=== PATIENT | male | born 1970 | race Caucasian/White ===

== ENCOUNTER 2016-06-10 12:40 | Inpatient (IN) | payer SELFPAY ==
--- NOTE | 2016-06-10 12:52 | ER Document Report ---
ED Medical Screen (RME) - General Stated Complaint: POSSIBLE KIDNEY PROBLEM Notes: 45 yo male c/o hx/o polycystic disease, stage 6 CKD c/o fluid retention. hands and feet swelling. increased urination. unable to lie flat. + shortness of breath. no fever. Given Lasix at [facility] yesterday, treated with Lasix. Follow up today, instructed to come to ER for further evaluation TRAVEL OUTSIDE OF THE [place] IN LAST 30 DAYS: No - Related Data Allergies/Adverse Reactions: Penicillins Adverse Reaction (Verified 05/28/16 14:26) Past Medical History - Past Medical History Cardiac Medical History: Reports: Hx Hypertension Neurological Medical History: Denies: Hx Seizures Endocrine Medical History: Reports: Hx Diabetes Mellitus Type 2 - "diet- controlled" Past Surgical History: Reports: Hx Orthopedic Surgery - fx L forearm, Hx Tonsillectomy - adnoids. Denies: Hx Pacemaker - Immunizations Immunizations up to date: Yes Hx Diphtheria, Pertussis, Tetanus Vaccination: Yes
[2016-06-10 13:21] LABS: ABSOLUTE BASOPHILS # (AUTO) 0.1 10^3/uL (0.0-0.2); ABSOLUTE EOSINOPHILS # (AUTO) 0.2 10^3/uL (0.0-0.6); ABSOLUTE LYMPHOCYTES (AUTO) 1.5 10^3/uL (0.5-4.7); ABSOLUTE MONOCYTES (AUTO) 0.5 10^3/uL (0.1-1.4); BASOPHILS % (AUTO) 1.5 % (0-2); EOSINOPHILS % (AUTO) 2.8 % (0-6); HEMATOCRIT 30.6 % (37.9-51.0); HEMOGLOBIN 10.1 g/dL (13.5-17.0); HGB HCT DIFFERENCE -0.3; LYMPHOCYTES % (AUTO) 17.6 % (13-45); MEAN CORPUSCULAR HEMOGLOBIN 29.3 pg (27.0-33.4); MEAN CORPUSCULAR HGB CONC 33.1 g/dL (32.0-36.0); MEAN CORPUSCULAR VOLUME 88 fl (80-97); MONOCYTES % (AUTO) 6.3 % (3-13); RED BLOOD COUNT 3.46 10^6/uL (4.35-5.55); RED CELL DISTRIBUTION WIDTH 14.7 % (11.5-14.0); SEGMENTED NEUTROPHILS % (AUTO) 71.8 % (42-78); WHITE BLOOD COUNT 8.4 10^3/uL (4.0-10.5)
[2016-06-10 13:22] LABS: APPEARANCE,URINE CLEAR; BILIRUBIN,URINE NEGATIVE (NEGATIVE); GLUCOSE, URINE 50 mg/dL (NEGATIVE); KETONES,URINE NEGATIVE (NEGATIVE); LEUKOCYTE ESTERASE,URINE MODERATE (NEGATIVE); NITRITE,URINE NEGATIVE (NEGATIVE); PROTEIN,URINE >=500 mg/dL (NEGATIVE); UROBILINOGEN,URINE NEGATIVE mg/dL (<2.0)
[2016-06-10 13:43] LABS: ALANINE AMINOTRANSFERASE 40 U/L (21-72); ALBUMIN 3.7 g/dL (3.5-5.0); ALKALINE PHOSPHATASE 125 U/L (38-126); ANION GAP 18 (5-19); ASPARTATE AMINO TRANSFERASE 26 U/L (17-59); BILIRUBIN,TOTAL 0.3 mg/dL (0.2-1.3); BLOOD UREA NITROGEN 91 mg/dL (7-20); CARBON DIOXIDE 19 mmol/L (22-30); CHLORIDE 109 mmol/L (98-107); CREATININE RESULT 10.22 mg/dL (0.52-1.25); GLUCOSE 82 mg/dL (75-110); POTASSIUM 4.8 mmol/L (3.6-5.0); SODIUM 145.9 mmol/L (137-145); TOTAL PROTEIN 6.5 g/dL (6.3-8.2)
[2016-06-10 14:02] LABS: CALCIUM 5.9 mg/dL (8.4-10.2)
[2016-06-10] MEDS ORDERED: FUROSEMIDE INJ/PF 40 MG/4 ML SDV IV ONE (15:14)
--- NOTE | 2016-06-10 15:17 | ER Document Report ---
ED General - General Chief Complaint: Edema Stated Complaint: POSSIBLE KIDNEY PROBLEM Notes: Patient is a 45-year-old morbidly obese male, history of hypertension, hyperlipidemia, chronic kidney disease, polycystic kidney disease who presents from his chronic care doctor's office with concerns of increasing peripheral edema and orthopnea. The patient has a known history of chronic kidney disease but his primary care doctor's documents as well as the patient's history note that it has been getting progressively worse over the last 6 months. Patient states that he has not been able see the appropriate specialist secondary to lack of insurance. He notes that his both the orthopnea as well as the peripheral edema has gotten dramatically worse in the last 4 days despite taking increasing doses of Lasix. Nothing has improved worsened his symptoms. Denies any history of similar symptoms in the past. He has not had any chest pain, weakness, numbness, or altered mental status. TRAVEL OUTSIDE OF THE [place] IN LAST 30 DAYS: No - Related Data Allergies/Adverse Reactions: Penicillins Adverse Reaction (Verified 06/10/16 12:51) Home Medications: Current Home Medications Nifedipine [Nifedipine ER] 30 mg PO DAILY 06/10/16 [History] Past Medical History - General Information source: Patient - Social History Smoking Status: Never Smoker Chew tobacco use (# tins/day): No Frequency of alcohol use: None Drug Abuse: None Lives with: Alone Family History: Reviewed & Not Pertinent Patient has suicidal ideation: No Patient has homicidal ideation: No - Past Medical History Cardiac Medical History: Reports: Hx Hypertension Neurological Medical History: Denies: Hx Seizures Endocrine Medical History: Reports: Hx Diabetes Mellitus Type 2 - "diet- controlled" Past Surgical History: Reports: Hx Orthopedic Surgery - fx L forearm, Hx Tonsillectomy - adnoids. Denies: Hx Pacemaker - Immunizations Immunizations up to date: Yes Hx Diphtheria, Pertussis, Tetanus Vaccination: Yes Hx Pneumococcal Vaccination: 04/07/12 Review of Systems - Review of Systems Notes: Constitutional: Negative for fever. HENT: Negative for sore throat. Eyes: Negative for visual changes. Cardiovascular: Negative for chest pain. Respiratory: Positive for shortness of breath. Gastrointestinal: Negative for abdominal pain, vomiting or diarrhea. Genitourinary: Negative for dysuria. Musculoskeletal: Negative for back pain. Skin: Negative for rash. Neurological: Negative for headaches, weakness or numbness. 10 point ROS negative except as marked above and in HPI. Physical Exam - Vital signs Vitals: Temp Pulse Resp BP Pulse Ox 97.9 F 73 20 211/106 H 98 06/10/16 12:51 06/10/16 12:51 06/10/16 12:51 06/10/16 12:51 06/10/16 12:51 Interpretation: Hypertensive Notes: PHYSICAL EXAMINATION: GENERAL: Morbidly obese. In no acute distress. HEAD: Atraumatic, normocephalic. EYES: Pupils equal round and reactive to light, extraocular movements intact, sclera anicteric, conjunctiva are normal. ENT: nares patent, oropharynx clear without exudates. Moist mucous membranes. NECK: Normal range of motion, supple without lymphadenopathy LUNGS: Breath sounds clear to auscultation bilaterally and equal. No wheezes rales or rhonchi. HEART: Regular rate and rhythm without murmurs ABDOMEN: Obese abdomen. Soft, nontender, normoactive bowel sounds. No guarding , no rebound. No masses appreciated. EXTREMITIES: Normal range of motion, 4+ pitting edema in the bilateral lower extremities that is equal and symmetric. No cyanosis. NEUROLOGICAL: No focal neurological deficits. Moves all extremities spontaneously and on command. PSYCH: Normal mood, normal affect. SKIN: Warm, Dry, normal turgor, no rashes or lesions noted. Course - Re-evaluation Re-evalutation: 06/10/16 23:21 Patient laboratories and history are most consistent with progressively worsening renal function the setting of morbid obesity and uncontrolled hypertension. Patient appears to have some associated congestive heart failure with associated orthopnea although he does not have any evidence of overt pulmonary edema chest x-ray or exam. Patient's renal function has deteriorated to the point where I believe the only option at this point is to proceed with initiation of dialysis. I have discussed this case with Dr. Cross the tree [employer] production worker who agrees. The patient will be admitted to the hospitalist service inserted on IV Lasix. He will be seen by nephrology in the morning for initiation of dialysis. - Vital Signs Vital signs: Temp Pulse Resp BP Pulse Ox 98.3 F 95 20 209/91 H 100 06/10/16 20:00 06/10/16 20:00 06/10/16 20:00 06/10/16 20:00 06/10/16 20:00 - Laboratory Result Diagrams: 06/10/16 12:55 06/10/16 12:55 Laboratory results interpreted by me: 06/10/16 06/10/16 06/10/16 12:55 12:55 12:55 RBC 3.46 L Hgb 10.1 L Hct 30.6 L RDW 14.7 H Sodium 145.9 H Chloride 109 H Carbon Dioxide 19 L BUN 91 H Creatinine 10.22 H Est GFR ( Amer) 7 L Est GFR (Non-Af Amer) 6 L Calcium 5.9 L* NT-Pro-B Natriuret Pep 2480 H Urine Protein Urine Glucose (UA) Urine Blood Ur Leukocyte Esterase 06/10/16 13:00 RBC Hgb Hct RDW Sodium Chloride Carbon Dioxide BUN Creatinine Est GFR ( Amer) Est GFR (Non-Af Amer) Calcium NT-Pro-B Natriuret Pep Urine Protein >=500 H Urine Glucose (UA) 50 H Urine Blood MODERATE H Ur Leukocyte Esterase MODERATE H - Diagnostic Test Radiology reviewed: Image reviewed, Reports reviewed Radiology results interpreted by me: 06/10/16 23:22 Chest x-ray: Cardiomegaly without overt pulmonary edema - EKG Interpretation by Me Additional EKG results interpreted by me: 06/10/16 23:23 Normal sinus rhythm. Rate 88. No ST elevations or depressions. QTC 470. Discharge - Discharge Clinical Impression: Accelerated secondary hypertension, PCK (polycystic kidney disease), CKD ( chronic kidney disease) stage V requiring chronic dialysis Condition: Fair Disposition: ADMITTED INPATIENT Admitting Provider: Hospitalist - [facility] Admitted: Telemetry
[2016-06-10] MEDS ORDERED: IPRATROPIUM/ALBUTEROL 0.5-2.5 MG/3 ML AMPUL NEB PRN (16:17)
[2016-06-10] MEDS ORDERED: ACETAMINOPHEN 325 MG TABLET PO PRN (16:30)
[2016-06-10] MEDS ORDERED: ONDANSETRON HCL INJ/PF 4 MG/2 ML SDV IV PRN (16:30)
[2016-06-10] MEDS ORDERED: HYDRALAZINE HCL INJ/PF 20 MG/1 ML SDV IV ONE (16:40)
--- NOTE | 2016-06-10 17:14 | PDOC H&P ---
History of Present Illness Admission Date/PCP: 06/10/16 15:39 Patient complains of: SWELLING AND DYSPNEA WHEN LYING FLAT, PROGRESSIVE FATIGUE History of Present Illness: KIERAN LOVE is a 45 year old male cared for by the local [facility] carrying a known diagnosis of polycystic kidney disease previously seen by Dr. Cross, store specialist in consultation who presents to the emergency department with progressive lower extremity swelling, difficulty breathing when lying flat , progressive weakness to the point that he cannot perform normal activities of daily living. He was recently seen in the emergency department on May 28 and diagnosed with lower extremity cellulitis and placed on a sulfa antibiotic for 5d and changed his antihypertensive regimen taking him off clonidine and Norvasc and placing him on nifedipine. He noticed no change in the lower extremity rash however his lower extremity edema continued to worsen. He denies chest pain or palpitations. He reports continuing to produce urine but has noticed a drop off in volume and frequency over the last week. He was seen at [facility] yesterday and given 2 injections of IM Lasix without effect. Evaluation in the emergency department shows pulmonary edema, markedly elevated systolic and diastolic blood pressures, and clinical findings suggestive of acute heart failure with worsening of his renal function from a serum creatinine of over 8 one year ago to now over 10 for persistent metabolic acidosis and numerous electrolyte abnormalities. We were asked to admit the patient for further evaluation and management. Past Medical History Cardiac Medical History: Reports: Hypertension Denies: Atrial Fibrillation, Congestive Heart Failure, Coronary Artery Disease Pulmonary Medical History: Reports: None Neurological Medical History: Denies: Seizures Endocrine Medical History: Reports: Diabetes Mellitus Type 2 - "diet-controlled " Renal/ Medical History: Reports: Chronic Kidney Disease - Polycystic kidney disease diagnosed within the last year both here and at [place], [place] Past Surgical History Past Surgical History: Reports: Orthopedic Surgery - fx L forearm, Tonsillectomy - adnoids Denies: Pacemaker Social History Information Source: Patient Smoking Status: Never Smoker Frequency of Alcohol Use: None Hx Recreational Drug Use: No Hx Prescription Drug Abuse: No - Advance Directive Resuscitation Status: Full Code Family History Family History: Other - Polycystic kidney disease in his aunt Parental Family History Reviewed: Yes Children Family History Reviewed: Yes Sibling(s) Family History Reviewed.: Yes Medication/Allergy Home Medications: Nifedipine [Nifedipine ER] 30 mg PO DAILY 06/10/16 Allergies/Adverse Reactions: Penicillins Adverse Reaction (Verified 06/10/16 12:51) Review of Systems Constitutional: PRESENT: weight gain. ABSENT: chills, fever(s), headache(s), weight loss Eyes: ABSENT: visual disturbances Ears: ABSENT: hearing changes Cardiovascular: PRESENT: edema, orthropnea. ABSENT: chest pain, dyspnea on exertion, palpitations Respiratory: PRESENT: cough - Dry hacking. ABSENT: hemoptysis Gastrointestinal: ABSENT: abdominal pain, constipation, diarrhea, hematemesis, hematochezia, nausea, vomiting Genitourinary: ABSENT: dysuria, hematuria Musculoskeletal: ABSENT: joint swelling Integumentary: ABSENT: rash, wounds Neurological: PRESENT: weakness. ABSENT: abnormal gait, abnormal speech, confusion, dizziness, syncope Psychiatric: ABSENT: anxiety, depression, homidical ideation, suicidal ideation Endocrine: ABSENT: cold intolerance, heat intolerance, polydipsia Hematologic/Lymphatic: ABSENT: easy bleeding, easy bruising Physical Exam Vital Signs: Temp Pulse Resp BP Pulse Ox 97.9 F 73 21 H 195/105 H 98 06/10/16 12:51 06/10/16 12:51 06/10/16 15:01 06/10/16 15:01 06/10/16 15:01 General appearance: PRESENT: no acute distress, cooperative Head exam: PRESENT: atraumatic, normocephalic Eye exam: PRESENT: EOMI, PERRLA. ABSENT: conjunctival injection, scleral icterus Mouth exam: PRESENT: moist Neck exam: PRESENT: full ROM. ABSENT: carotid bruit, JVD Respiratory exam: PRESENT: crackles - Bilateral bases, unlabored. ABSENT: rhonchi, wheezes Cardiovascular exam: PRESENT: RRR. ABSENT: systolic murmur - Distant heart sounds Pulses: PRESENT: normal carotid pulses, normal radial pulses Vascular exam: PRESENT: normal capillary refill. ABSENT: pallor GI/Abdominal exam: PRESENT: normal bowel sounds, soft - Massive pannus making it difficult to palpate renal margins. ABSENT: tenderness Rectal exam: PRESENT: deferred Extremities exam: PRESENT: +2 edema - With nonpitting edema as well Musculoskeletal exam: PRESENT: ambulatory, full ROM Neurological exam: PRESENT: alert, awake, oriented to person, oriented to place , oriented to time Psychiatric exam: PRESENT: appropriate affect, normal mood Skin exam: PRESENT: normal color, warm, other - 3 distinct excoriations on the right anterior south. No evidence of rash otherwise. No calluses Results Impressions: Chest X-Ray 06/10/16 12:55 IMPRESSION: Cardiomegaly. No acute infiltrates Assessment & Plan - Diagnosis (1) PCK (polycystic kidney disease) Is this a current diagnosis for this admission?: YesPlan: Appears to advanced to end-stage renal disease now requiring hemodialysis to maintain euvolemic. I spoke with Dr. Cross who will see the patient in consultation. I spoke with Dr. Alva, vascular surgeon who will see the patient in consultation. As a temporizing measure, Will place Rodriguez catheter for strict I's and O's and give IV Lasix. We'll check magnesium phosphorus and vitamin D screening for renal osteodystrophy. (2) Accelerated secondary hypertension Is this a current diagnosis for this admission?: YesPlan: Chest x-ray shows pulmonary vascular congestion and possible flash pulmonary edema from hypertension. Will treat with IV hydralazine 1 now and then scheduled oral hydralazine with scheduled clonidine and continue the patient's nifedipine. Goal is a 25% reduction in his systolic and diastolic blood pressures in the short-term. (3) Pulmonary edema Is this a current diagnosis for this admission?: YesPlan: As above. We'll check LV function with echocardiogram. (4) Anemia Qualifiers: Anemia type: unspecified type Qualified Code(s): D64.9 - Anemia, unspecified Is this a current diagnosis for this admission?: YesPlan: Probably anemia of chronic renal disease. We'll screen for iron deficiency. - Time Time Spent: 50 to 70 Minutes Medications reviewed and adjusted accordingly: Yes Anticipated discharge: Home Within: Other - Inpatient Certification Based on my medical assessment, after consideration of the patient's comorbidities, presenting symptoms, or acuity I expect that the services needed warrant INPATIENT care.: Yes I certify that my determination is in accordance with my understanding of Medicare's requirements for reasonable and necessary INPATIENT services [42 CFR 412.3e].: Yes Medical Necessity: Failure to Improve With Outpatient Therapy, Significant Comorbidiites Make Outpatient Treatment Too Risky, Risk of Complication if Not Cared For in Hospital
[2016-06-10] MEDS: CALCITRIOL 0.25 MCG CAPSULE PO SCH (18:43)
[2016-06-10 18:49] LABS: MAGNESIUM 1.5 mg/dL (1.6-2.3); PHOSPHORUS 7.9 mg/dL (2.5-4.5)
--- NOTE | 2016-06-10 19:43 | PDOC CONSULTATION ---
Consultation Consult Date: 06/10/16 Consult reason:: ESRD and heart failure for dialysis. History of Present Illness Admission Date/PCP: 06/10/16 16:17 History of Present Illness: Assessment Ector Lawrence is a 45-year-old gentleman with a past medical history of hypertension for at least 10 years with a diagnosis of adult polycystic kidney disease made approximately 3-4 years ago comes in with history of progressive shortness of breath and anasarca. He has had no primary care other than [facility] where he has been getting his antihypertensives. He has a [id number] by the bedside who has noticed progressive swelling especially of his lower extremities over the last few weeks. His also noticed difficulty with breathing which has gotten to the point of orthopnea and has been sleeping sitting up. He is on a low-sodium diet. No history of any chest pains palpitations. No stricture and severe headaches he shows focal deficits. He does not take any NSAIDs. No hematuria. He has mild flank pains but nothing severe. He states he has been told that he has had progressive ckd other [facility]. Past Medical History Cardiac Medical History: Reports: Hypertension-primary Denies: Atrial Fibrillation, Coronary Artery Disease Pulmonary Medical History: Reports: None Neurological Medical History: Denies: Seizures Endocrine Medical History: Reports: Diabetes Mellitus Type 2 - "diet-controlled " Renal/ Medical History: Reports: Chronic Kidney Disease Stage IV, Other - Polycystic kidney disease. Past Surgical History Past Surgical History: Reports: Orthopedic Surgery - fx L forearm, Tonsillectomy - adnoids Denies: Pacemaker Social History Smoking Status: Never Smoker Frequency of Alcohol Use: None Hx Recreational Drug Use: No Hx Prescription Drug Abuse: No - Advance Directive Resuscitation Status: Full Code Family History Parental Family History Reviewed: Yes - paternal aunt with polycystic kidney disease. No history of premature hear Children Family History Reviewed: No Sibling(s) Family History Reviewed.: No - He has one brother who does not have polycystic kidney disease. Medication/Allergy Home Medications: Nifedipine [Nifedipine ER] 30 mg PO DAILY 06/10/16 Allergies/Adverse Reactions: Penicillins Adverse Reaction (Verified 06/10/16 12:51) Review of Systems Constitutional: PRESENT: weight gain. ABSENT: anorexia, chills, fever(s), headache(s), night sweats, weakness, weight loss Eyes: ABSENT: visual disturbances Ears: ABSENT: hearing changes Nose, Mouth, and Throat: ABSENT: mouth pain, sore throat, vertigo Cardiovascular: PRESENT: dyspnea on exertion, edema, orthropnea. ABSENT: chest pain, palpitations Respiratory: PRESENT: dyspnea. ABSENT: hemoptysis Gastrointestinal: ABSENT: abdominal pain, bloating, coffee ground emesis, diarrhea, dysphagia, heartburn, hematemesis, hematochezia, melena, nausea, vomiting Genitourinary: ABSENT: difficulty urinating, dysuria, hematuria, nocturia Musculoskeletal: ABSENT: muscle weakness Integumentary: ABSENT: erythema, lesions, pruritus, rash Neurological: ABSENT: confusion, convulsions, focal weakness Endocrine: ABSENT: heat intolerance, polydipsia Hematologic/Lymphatic: ABSENT: easy bleeding Physical Exam Vital Signs: Temp Pulse Resp BP Pulse Ox 97.6 F 90 18 187/88 H 99 06/10/16 17:39 06/10/16 17:57 06/10/16 17:57 06/10/16 17:39 06/10/16 17:57 General appearance: PRESENT: no acute distress, obese Eye exam: PRESENT: conjunctiva pink, EOMI, PERRLA. ABSENT: nystagmus, scleral icterus Ear exam: PRESENT: normal external ear exam Mouth exam: PRESENT: moist, neck supple Neck exam: ABSENT: lymphadenopathy, meningismus, tenderness, thyromegaly, tracheal deviation Respiratory exam: PRESENT: clear to auscultation german, crackles, rales, symmetrical. ABSENT: rhonchi Cardiovascular exam: PRESENT: +S1, +S2 GI/Abdominal exam: PRESENT: soft. ABSENT: organomegaly, tenderness Extremities exam: PRESENT: +1 edema Neurological exam: PRESENT: alert, awake, oriented to person, oriented to place , oriented to time Psychiatric exam: PRESENT: normal mood Results Laboratory Results: 06/10/16 18:10 Phosphorus 7.9 H Magnesium 1.5 L 06/10/16 18:10 Troponin I 0.016 Impressions: Chest X-Ray 06/10/16 12:55 IMPRESSION: Cardiomegaly. No acute infiltrates Assessment & Plan - Diagnosis (1) CKD (chronic kidney disease) stage V requiring chronic dialysis Plan: This patient has ckd stage V from polycystic kidney disease. He has got congestive heart failure . However he is in no extremis. Electrolytes are stable. Patient has been begun on IV Lasix and antihypertensives as per hospitalist. I have discussed the patient's situation at length with both the hospitalist and with Dr. Alva. We will plan to insert PermCath and start hemodialysis and later convert him to PKD in the next few weeks' time. Have discussed the procedure of hemodialysis at great lengths including the pros and cons. The patient understands the risks of the procedure including infections bleeding, hypotension and rare cases cardiac arrest. He is willing to proceed. We will get appropriate labs including hepatitis panel and place a PPD to be read in 48 hours. (2) Anemia Qualifiers: Anemia type: unspecified type Qualified Code(s): D64.9 - Anemia, unspecified Is this a current diagnosis for this admission?: YesPlan: Initiated workup. (3) PCK (polycystic kidney disease) Is this a current diagnosis for this admission?: YesPlan: Diagnosis made approximately 34 years ago. I did review his CT scan done on 10/2014 which had shown polycystic kidney disease and potential mass in the left lower pole of the kidneys. No follow-up studies or ultrasound has been done here. I have ordered a renal ultrasound today to follow-up. I also did review the CT of his brain done the same time which hadn't shown no evidences of any aneurysms. Patient does not have a history of severe intermittent headaches nor a family history of premature strokes.
[2016-06-10 19:59] LABS: THYROID STIMULATING HORMONE 2.37 uIU/mL (0.47-4.68)
[2016-06-10] MEDS: HEPARIN SOD (PORCINE) 5,000 UNIT/ML 1 ML SYRINGE SUBCUT SCH (21:05)
[2016-06-10] MEDS: HYDRALAZINE HCL 50 MG TABLET PO SCH (21:07)
[2016-06-10] MEDS: CLONIDINE HCL 0.1 MG TABLET PO SCH (21:07)
[2016-06-10] MEDS: FUROSEMIDE INJ/PF 40 MG/4 ML SDV IV SCH (21:08)
[2016-06-10] MEDS ORDERED: TUBERCULIN,PURIF.PROT.DERIV. 5 TU/0.1 ML TEST 1 ML VIAL ID ONE (22:00)
[2016-06-11] MEDS: HYDRALAZINE HCL 50 MG TABLET PO SCH ×3 (05:18→21:10)
[2016-06-11] MEDS: FUROSEMIDE INJ/PF 40 MG/4 ML SDV IV SCH ×3 (05:18→21:10)
[2016-06-11] MEDS: HEPARIN SOD (PORCINE) 5,000 UNIT/ML 1 ML SYRINGE SUBCUT SCH ×3 (05:18→21:09)
[2016-06-11] MEDS: LANSOPRAZOLE 15 MG TAB.RAP.DR PO SCH (05:18)
[2016-06-11 07:11] LABS: HEMATOCRIT 29.9 % (37.9-51.0); HGB HCT DIFFERENCE 0.1; MEAN CORPUSCULAR HEMOGLOBIN 29.9 pg (27.0-33.4); MEAN CORPUSCULAR HGB CONC 33.6 g/dL (32.0-36.0); MEAN CORPUSCULAR VOLUME 89 fl (80-97); RED BLOOD COUNT 3.36 10^6/uL (4.35-5.55); RED CELL DISTRIBUTION WIDTH 14.5 % (11.5-14.0); WHITE BLOOD COUNT 8.3 10^3/uL (4.0-10.5)
[2016-06-11 07:53] LABS: ANION GAP 17 (5-19); BLOOD UREA NITROGEN 93 mg/dL (7-20); CARBON DIOXIDE 17 mmol/L (22-30); CHLORIDE 110 mmol/L (98-107); CHOLESTEROL 120.59 mg/dL (0-200); CREATININE RESULT 10.47 mg/dL (0.52-1.25); Direct HDL 28 mg/dL (>40); GLUCOSE 93 mg/dL (75-110); POTASSIUM 4.9 mmol/L (3.6-5.0); SODIUM 143.9 mmol/L (137-145); TRIGLYCERIDES 112 mg/dL (<150)
[2016-06-11 08:04] LABS: DIRECT LDL 60 mg/dL (<100)
[2016-06-11] MEDS ORDERED: HEPARIN SODIUM,PORCINE/NS/PF 0 UNIT/0 ML RTUINJ IV ONE (08:11)
[2016-06-11] MEDS ORDERED: DIAZEPAM 5 MG TABLET PO PRN (08:48)
[2016-06-11 09:00] LABS: FOLATE 9.32 ng/mL (>2.76)
[2016-06-11 09:11] LABS: CALCIUM 6.1 mg/dL (8.4-10.2)
--- NOTE | 2016-06-11 09:41 | EKG REPORT ---
SEVERITY:- ABNORMAL ECG - SINUS RHYTHM PROBABLE LEFT ATRIAL ABNORMALITY PROBABLE INFERIOR INFARCT, OLD BORDERLINE R WAVE PROGRESSION, ANTERIOR LEADS : Confirmed by: Diana Mosley MD 11-Jun-2016 09:40:34
--- NOTE | 2016-06-11 10:02 | PDOC PROGRESS REPORT ---
Subjective Progress Note for:: 06/11/16 Subjective:: Feeling better today. He has had a good diuresis. He complains of some spasms of his muscles. No history of any perioral numbness or history to indicate seizures. He is posted for having a PermCath this morning for dialysis tomorrow. Physical Exam Vital Signs: Temp Pulse Resp BP Pulse Ox 98.3 F 77 18 161/92 H 94 06/11/16 07:25 06/11/16 09:31 06/11/16 09:31 06/11/16 07:25 06/11/16 09:31 Intake & Output 06/10/16 06/11/16 06/12/16 06:59 06:59 06:59 Intake Total 0 Output Total 4100 Balance -4100 Weight 164.9 kg General appearance: PRESENT: no acute distress Respiratory exam: PRESENT: clear to auscultation german. ABSENT: crackles Cardiovascular exam: PRESENT: +S1, +S2 GI/Abdominal exam: PRESENT: soft. ABSENT: organomegaly, tenderness Extremities exam: PRESENT: pedal edema - trace Results Laboratory Results: 06/11/16 06:55 06/11/16 06:55 06/10/16 06/10/16 06/11/16 18:10 18:10 06:55 WBC RBC Hgb Hct MCV MCH MCHC RDW Plt Count Retic Count (auto) Absolute Retic Sodium 143.9 Potassium 4.9 Chloride 110 H Carbon Dioxide 17 L Anion Gap 17 BUN 93 H Creatinine 10.47 H Est GFR ( Amer) 7 L Est GFR (Non-Af Amer) 5 L Glucose 93 Calcium 6.1 L* Phosphorus 7.9 H Magnesium 1.5 L Iron 61 TIBC 262 % Saturation 23 Ferritin 237.00 Triglycerides 112 Cholesterol 120.59 LDL Cholesterol Direct 60 VLDL Cholesterol 22.0 HDL Cholesterol 28 L Vitamin B12 827.0 Folate 9.32 TSH 2.37 Free T4 1.12 06/11/16 06:55 WBC 8.3 RBC 3.36 L Hgb 10.0 L Hct 29.9 L MCV 89 MCH 29.9 MCHC 33.6 RDW 14.5 H Plt Count 216 Retic Count (auto) 0.82 Absolute Retic 0.027 L Sodium Potassium Chloride Carbon Dioxide Anion Gap BUN Creatinine Est GFR ( Amer) Est GFR (Non-Af Amer) Glucose Calcium Phosphorus Magnesium Iron TIBC % Saturation Ferritin Triglycerides Cholesterol LDL Cholesterol Direct VLDL Cholesterol HDL Cholesterol Vitamin B12 Folate TSH Free T4 06/10/16 06/11/16 06/11/16 18:10 00:35 06:55 Troponin I 0.016 0.015 0.018 Impressions: Chest X-Ray 06/10/16 12:55 IMPRESSION: Cardiomegaly. No acute infiltrates Renal Ultrasound 06/10/16 15:13 IMPRESSION: LIMITED STUDY. POLYCYSTIC KIDNEY DISEASE WITH INNUMERABLE CYSTS OF VARYING SIZE AND DENSITY IN BOTH KIDNEYS. NO GROSS HYDRONEPHROSIS VISUALIZED. Assessment & Plan - Diagnosis (1) CKD (chronic kidney disease) stage V requiring chronic dialysis Plan: He is going to have a PermCath inserted this morning and plan for dialysis in the morning. (2) Anemia Qualifiers: Anemia type: unspecified type Qualified Code(s): D64.9 - Anemia, unspecified Is this a current diagnosis for this admission?: Yes (3) PCK (polycystic kidney disease) Is this a current diagnosis for this admission?: Yes (4) Hypocalcemia Plan: He has maybe early symptoms of tetany. I'm going to order IV calcium followed by by mouth calcium as well as. Discussed with the nurse to initiate this before he goes down for surgery. (5) Hypomagnesemia Plan: We will plan to give this as an IV followed by by mouth.discussed with nurse to initiate this before he goes down for surgery as well. (6) CHF (congestive heart failure) Plan: Much improved with IV diuresis. Continue to monitor. (7) Hypertension Plan: Improving on current medications. Continue the same.
[2016-06-11] MEDS ORDERED: MAGNESIUM SULFATE INJ 8 MEQ/2 ML IV ONE (10:30)
[2016-06-11] MEDS ORDERED: BUPIVACAINE HCL 0.25 % INJ/PF (2.5 MG/1 ML) 30 ML VIAL ONE (10:47)
[2016-06-11] MEDS ORDERED: BACITRACIN INJ 50,000 UNIT VIAL ONE (10:48)
[2016-06-11] MEDS ORDERED: LIDOCAINE 0.5% INJ-PF (5 MG/ML) 50 ML SDV ONE (10:48)
[2016-06-11] MEDS: CALCITRIOL 0.25 MCG CAPSULE PO SCH ×2 (10:57→19:19)
[2016-06-11] MEDS: CALCIUM CARBONATE 500 MG TAB.CHEW PO SCH ×2 (10:57→19:20)
[2016-06-11] MEDS ORDERED: FENTANYL CITRATE INJ/PF 100 MCG/2 ML AMPUL ONE ×2 (10:58→10:59)
[2016-06-11] MEDS: MAGNESIUM OXIDE 400 MG TABLET PO SCH ×2 (10:58→19:20)
[2016-06-11] MEDS ORDERED: MIDAZOLAM 2 MG/2 ML INJ ONE (10:59)
[2016-06-11] MEDS ORDERED: PROPOFOL INJ 200 MG/20 ML VIAL IV ONE (10:59)
[2016-06-11] MEDS: CLONIDINE HCL 0.1 MG TABLET PO SCH ×2 (10:59→21:10)
[2016-06-11] MEDS ORDERED: MAGNESIUM SULFATE/D5W 1 GM/100 ML RTUPB IV ONE ×2 (11:00→15:45)
[2016-06-11] MEDS: NIFEDIPINE 30 MG TAB.ER.24 PO SCH (11:01)
[2016-06-11] MEDS ORDERED: VANCOMYCIN HCL INJ 500 MG VIAL ONE ×2 (11:20→12:11)
[2016-06-11] MEDS ORDERED: FENTANYL CITRATE INJ/PF 100 MCG/2 ML AMPUL IV PRN ×3 (12:01)
[2016-06-11] MEDS ORDERED: DIPHENHYDRAMINE HCL 50 MG/ML VIAL IV PRN (12:01)
[2016-06-11] MEDS ORDERED: ONDANSETRON HCL INJ/PF 4 MG/2 ML SDV IV PRN (12:01)
[2016-06-11] MEDS ORDERED: MEPERIDINE HCL/PF INJ 25 MG/1 ML DISP.SYRIN IV PRN (12:01)
[2016-06-11] MEDS: LIDOCAINE 0.5% INJ-PF (5 MG/ML) 50 ML SDV ONE ×2 (12:12→12:30)
[2016-06-11] MEDS ORDERED: LABETALOL HCL INJ 20 MG/4 ML DISP.SYRIN IV ONE (13:08)
--- NOTE | 2016-06-11 13:53 | PDOC PROGRESS REPORT ---
Subjective Progress Note for:: 06/11/16 Subjective:: CC: Weakness and swelling, dyspnea. KIERAN LOVE is a 45 year old malecared for by the local [facility] carrying a known diagnosis of polycystic kidney disease previously seen by Dr. Cross, windows desktop support in consultation who presents to the emergency department with progressive lower extremity swelling, difficulty breathing when lying flat , progressive weakness to the point that he cannot perform normal activities of daily living. He was recently seen in the emergency department on May 28 and diagnosed with lower extremity cellulitis and placed on a sulfa antibiotic for 5d and changed his antihypertensive regimen taking him off clonidine and Norvasc and placing him on nifedipine. He noticed no change in the lower extremity rash however his lower extremity edema continued to worsen. He denies chest pain or palpitations. He reports continuing to produce urine but has noticed a drop off in volume and frequency over the last week. He was seen at [facility] yesterday and given 2 injections of IM Lasix without effect. Evaluation in the emergency department shows pulmonary edema, markedly elevated systolic and diastolic blood pressures, and clinical findings suggestive of acute heart failure with worsening of his renal function from a serum creatinine of over 8 one year ago to now over 10 for persistent metabolic acidosis and numerous electrolyte abnormalities. We were asked to admit the patient for further evaluation and management. Full catheter was placed for strict I's and O's patient does continue to make urine. Lasix IV was started with good results. Dr. Cross, nephrology, was consult and anticipates initiating hemodialysis on Wednesday. Dr. Alva consulted for permacath placement scheduled later today. Overall the patient's condition is improved with at least mild diuresis. He has complaints of muscle aches and cramps. His electrolytes are a bit abnormal including low magnesium and low calcium. Both of those were replaced by Dr. Cross. ROS: Total 10 systems are reviewed with the patient the pertinent positives and negatives are noted above the remaining systems are negative. Physical Exam Vital Signs: Temp Pulse Resp BP Pulse Ox 97.9 F 66 15 156/79 H 94 06/11/16 12:43 06/11/16 13:28 06/11/16 13:28 06/11/16 13:28 06/11/16 13:28 Intake & Output 06/10/16 06/11/16 06/12/16 06:59 06:59 06:59 Intake Total 0 350 Output Total 4100 320 Balance -4100 30 Weight 164.9 kg General appearance: PRESENT: no acute distress, obese Eye exam: PRESENT: EOMI, PERRLA. ABSENT: conjunctival injection Mouth exam: PRESENT: dry mucosa Neck exam: ABSENT: JVD Respiratory exam: PRESENT: crackles, unlabored. ABSENT: accessory muscle use, wheezes Cardiovascular exam: PRESENT: RRR. ABSENT: systolic murmur Pulses: PRESENT: normal carotid pulses, normal radial pulses GI/Abdominal exam: PRESENT: diminished bowel sounds, soft. ABSENT: tenderness Gentrourinary exam: ABSENT: scrotal swelling Extremities exam: PRESENT: calf tenderness, full ROM, +2 edema Neurological exam: PRESENT: alert, awake, oriented to person, oriented to place , oriented to time Psychiatric exam: PRESENT: flat affect, normal mood Skin exam: PRESENT: dry, warm Results Laboratory Results: 06/11/16 06:55 06/11/16 06:55 06/10/16 06/10/16 06/11/16 18:10 18:10 06:55 WBC RBC Hgb Hct MCV MCH MCHC RDW Plt Count Retic Count (auto) Absolute Retic Sodium 143.9 Potassium 4.9 Chloride 110 H Carbon Dioxide 17 L Anion Gap 17 BUN 93 H Creatinine 10.47 H Est GFR ( Amer) 7 L Est GFR (Non-Af Amer) 5 L Glucose 93 Calcium 6.1 L* Phosphorus 7.9 H Magnesium 1.5 L Iron 61 TIBC 262 % Saturation 23 Ferritin 237.00 Triglycerides 112 Cholesterol 120.59 LDL Cholesterol Direct 60 VLDL Cholesterol 22.0 HDL Cholesterol 28 L Vitamin B12 827.0 Folate 9.32 TSH 2.37 Free T4 1.12 06/11/16 06:55 WBC 8.3 RBC 3.36 L Hgb 10.0 L Hct 29.9 L MCV 89 MCH 29.9 MCHC 33.6 RDW 14.5 H Plt Count 216 Retic Count (auto) 0.82 Absolute Retic 0.027 L Sodium Potassium Chloride Carbon Dioxide Anion Gap BUN Creatinine Est GFR ( Amer) Est GFR (Non-Af Amer) Glucose Calcium Phosphorus Magnesium Iron TIBC % Saturation Ferritin Triglycerides Cholesterol LDL Cholesterol Direct VLDL Cholesterol HDL Cholesterol Vitamin B12 Folate TSH Free T4 06/10/16 06/11/16 06/11/16 18:10 00:35 06:55 Troponin I 0.016 0.015 0.018 Impressions: Renal Ultrasound 06/10/16 15:13 IMPRESSION: LIMITED STUDY. POLYCYSTIC KIDNEY DISEASE WITH INNUMERABLE CYSTS OF VARYING SIZE AND DENSITY IN BOTH KIDNEYS. NO GROSS HYDRONEPHROSIS VISUALIZED. Assessment & Plan - Diagnosis (1) PCK (polycystic kidney disease) Is this a current diagnosis for this admission?: YesPlan: Appears to advanced to end-stage renal disease now requiring hemodialysis to maintain euvolemic. I spoke with Dr. Cross who will see the patient in consultation. I spoke with Dr. Alva, vascular surgeon who will see the patient in consultation. As a temporizing measure, placed Rodriguez catheter for strict I's and O's and given IV Lasix with good results. Check intact PTH and vitamin D screening for renal osteodystrophy. For permacath placement today and hemodialysis tomorrow (2) Accelerated secondary hypertension Is this a current diagnosis for this admission?: YesPlan: Improved. Chest x-ray shows pulmonary vascular congestion and possible flash pulmonary edema from hypertension. treated with IV hydralazine 1 and continue scheduled oral hydralazine with scheduled clonidine and continue the patient's nifedipine. Goal is a 25% reduction in his systolic and diastolic blood pressures in the short-term. Further titration as needed (3) Pulmonary edema Is this a current diagnosis for this admission?: YesPlan: As above. We'll check LV function with echocardiogram. (4) Anemia Qualifiers: Anemia type: unspecified type Qualified Code(s): D64.9 - Anemia, unspecified Is this a current diagnosis for this admission?: YesPlan: Probably anemia of chronic renal disease. screen for iron deficiency underway. (5) Hypocalcemia Is this a current diagnosis for this admission?: YesPlan: Replaced by Dr. Cross continue to monitor (6) Hypomagnesemia Is this a current diagnosis for this admission?: YesPlan: Replaced by Dr. Cross, continue to monitor - Time Time Spent with patient: 35 or more minutes
[2016-06-11] MEDS ORDERED: OXYCODONE-ACETAMINOPHEN 5-325 MG TABLET PO PRN (14:38)
--- NOTE | 2016-06-11 14:49 | Operative Report ---
Operative Report DATE OF SURGERY: 06/11/16 PREOPERATIVE DIAGNOSIS: #1 chronic kidney disease stage IV. #2 polycystic kidney disease. #3 anemia. #5 hypertension. #6 morbid obesity. POSTOPERATIVE DIAGNOSIS: #1 chronic kidney disease stage IV. #2 polycystic kidney disease. #3 anemia. #5 hypertension. #6 morbid obesity. OPERATION: #1 ultrasound guided access into the right internal jugular vein. # 2 PermCath insertion via right internal jugular vein. #3 angiogram and interpretation. SURGEON: ROME PRATT GAMING CASHIER: none ANESTHESIA: LMAC TISSUE REMOVED OR ALTERED: Not applicable. COMPLICATIONS: None ESTIMATED BLOOD LOSS: 5 mL. INTRAOPERATIVE FINDINGS: Of a satisfactory right internal jugular vein, estimated to be about 2 cm in diameter. Hardcopy documentation preserved. Satisfactory real-time access. Satisfactory placement of permacatheter. The tip was well down in the right atrium. Angiogram demonstrated smooth flow of contrast through the right atrium, ventricle and pulmonary outflow tract. PROCEDURE: After obtaining informed consent, the patient was taken to the [employer] and positioned supine. The right neck and chest were prepared with chlorhexidine and draped out with sterile linen. After the " universal timeout", in which it was verified that the patient continued to receive antibiotic, the procedure commenced. A steriley sheathed ultrasound probe was used to evaluate the right internal jugular vein. Local anesthesia was infiltrated adjacent to the probe. Access into the right internal jugular vein was obtained using a micropuncture needle, followed by micropuncture wire and then a micropuncture catheter. This was followed by introduction of a 0.035 guidewire the tip of which was placed down into the inferior vena cava . A 23 cm long split catheter was now positioned over the chest and an exit site marked and locally anesthetized ,the catheter was placed between the 2 incisions. Proximally, the catheter was now positioned using a peel-away sheath, after dilation. Easy ingress of heparinized solution and egress of blood obtained through both ports. A completion angiogram was done by injecting contrast. The findings were as dictated. The neck incision was now closed using interrupted 3-0 PDS to the subcutaneous tissues, the catheter was anchored at the exit site using 3- 0 PDS. A Biopatch device was now placed adjacent to the catheter. Dressings were applied and the procedure concluded. Exposure time: 0.6 minutes. Exposure: 17.1 g per centimeters squared. Contrast amount: 10 mL of [id number] low osmolality. Copies of the dictated operative report for Dr. Rome Alva MD.concluded. Copies of the dictated operative report for Dr. Rome Alva MD.
[2016-06-11] MEDS: CALCIUM ACETATE 667 MG CAPSULE PO SCH ×2 (16:19→19:17)
--- NOTE | 2016-06-11 19:22 | XCELERA REPORT ---
[address] [address] Transthoracic Echocardiogram Report Name: KIERAN LOVE Age: 45 yrs Gender: Male : 1970 Patient Status: Inpatient Patient Location: [id number] Study Date: 06/11/2016 09:44 AM Height: 75 in Weight: 357 lb BSA: 2.8 m2 Procedure: A complete two-dimensional transthoracic echocardiogram was performed (2D, M-mode, spectral and color flow Doppler). The study was technically difficult with many images being suboptimal in quality. Reason For Study: edema Ordering Physician: KIANNA MCCAIN Performed By: Asmita Dietrich Interpretation Summary The study was technically difficult with many images being suboptimal in quality. The left ventricular ejection fraction is preserved. Doppler measurements suggest pseudonormalized left ventricular relaxation, which is associated with grade II/IV or mild to moderate diastolic dysfunction There is mild concentric left ventricular hypertrophy. The left ventricle is grossly normal size. Not all wall segments were well visualized. Regional wall motion abnormalities cannot be excluded due to limited visualization. The right ventricular systolic function is normal. The left atrium is moderately dilated. The right atrium is normal in size There is no mitral valve stenosis. There is a trace amount of mitral regurgitation No aortic regurgitation is present. There is no aortic valve stenosis There is a trace or physiologic amount of tricuspid regurgitation Tricuspid regurgitation jet envelope not well defined to measure RV systolic pressure accurately. The aortic root is not well visualized. The inferior vena cava was not well visualized Small pericardial effusion. There are no echocardiographic or Doppler indications for cardiac tamponade MMode/2D Measurements \T\ Calculations RVDd: 3.5 cm LVIDd: 5.3 cm FS: 42.5 % Ao root diam: 3.8 cm IVSd: 1.3 cm LVIDs: 3.1 cm EDV(Teich): 137.8 ml LVPWd: 1.3 cm ESV(Teich): 37.1 ml Ao root area: 11.5 cm2 EF(Teich): 73.1 % LA dimension: 4.7 cm Doppler Measurements \T\ Calculations MV E max emily: MV P1/2t max emily: Ao V2 max: LV V1 max P.2 cm/sec 104.1 cm/sec 167.5 cm/sec 7.7 mmHg MV A max emily: MV P1/2t: 97.8 msec Ao max PG: LV V1 max: 133.3 cm/sec 11.2 mmHg 139.2 cm/sec MV E/A: 0.77 MVA(P1/2t): 2.3 cm2 MV dec slope: 312.0 cm/sec2 MV dec time: 0.32 sec PA V2 max: 92.8 cm/sec PA max P.4 mmHg Left Ventricle The left ventricle is grossly normal size. There is mild concentric left ventricular hypertrophy. The left ventricular ejection fraction is preserved. Doppler measurements suggest pseudonormalized left ventricular relaxation, which is associated with grade II/IV or mild to moderate diastolic dysfunction. Not all wall segments were well visualized. Regional wall motion abnormalities cannot be excluded due to limited visualization. Right Ventricle The right ventricle is grossly normal size. The right ventricular systolic function is normal. Atria The right atrium is normal in size. The left atrium is moderately dilated. Interarterial septum not well visualized and not well dopplered. Cannot comment on ASD/PFO presence. Mitral Valve The mitral valve is grossly normal. There is no mitral valve stenosis. There is a trace amount of mitral regurgitation. Aortic Valve The aortic valve is not well visualized secondary to technical limitations. There is no aortic valve stenosis. No aortic regurgitation is present. Tricuspid Valve The tricuspid valve is not well visualized secondary to technical limitations. There is no tricuspid stenosis. There is a trace or physiologic amount of tricuspid regurgitation. Tricuspid regurgitation jet envelope not well defined to measure RV systolic pressure accurately. Pulmonic Valve The pulmonic valve is not well seen, but is grossly normal. Great Vessels The aortic root is not well visualized. The inferior vena cava was not well visualized. Effusions Small pericardial effusion. There are no echocardiographic or Doppler indications for cardiac tamponade. : KIANNA MCCAIN > Charity Valverde
[2016-06-12 06:00] LABS: HEMATOCRIT 29.7 % (37.9-51.0); HEMOGLOBIN 9.2 g/dL (13.5-17.0); HGB HCT DIFFERENCE -2.1; MEAN CORPUSCULAR HGB CONC 31.2 g/dL (32.0-36.0); MEAN CORPUSCULAR VOLUME 90 fl (80-97); RED CELL DISTRIBUTION WIDTH 14.5 % (11.5-14.0); WHITE BLOOD COUNT 8.5 10^3/uL (4.0-10.5)
[2016-06-12 06:23] LABS: ANION GAP 18 (5-19); BLOOD UREA NITROGEN 94 mg/dL (7-20); CARBON DIOXIDE 16 mmol/L (22-30); CHLORIDE 105 mmol/L (98-107); CREATININE RESULT 10.25 mg/dL (0.52-1.25); GLUCOSE 96 mg/dL (75-110); MAGNESIUM 1.7 mg/dL (1.6-2.3); POTASSIUM 4.9 mmol/L (3.6-5.0); SODIUM 138.5 mmol/L (137-145)
[2016-06-12 06:35] LABS: CALCIUM 6.2 mg/dL (8.4-10.2)
[2016-06-12] MEDS: HEPARIN SOD (PORCINE) 5,000 UNIT/ML 1 ML SYRINGE SUBCUT SCH ×2 (06:57→15:22)
[2016-06-12] MEDS: FUROSEMIDE INJ/PF 40 MG/4 ML SDV IV SCH ×2 (06:57→15:22)
[2016-06-12] MEDS: LANSOPRAZOLE 15 MG TAB.RAP.DR PO SCH (06:58)
[2016-06-12] MEDS: HYDRALAZINE HCL 50 MG TABLET PO SCH ×2 (06:58→15:17)
[2016-06-12] MEDS: CALCIUM ACETATE 667 MG CAPSULE PO SCH ×2 (07:39→12:57)
[2016-06-12 07:43] LABS: HEPATITIS C VIRUS AB <0.1 s/co ratio (0.0-0.9)
[2016-06-12] MEDS ORDERED: CALCIUM CARBONATE 500 MG TAB.CHEW PO SCH (09:10)
[2016-06-12 09:18] LABS: ADD ON TESTING BLD IN LAB ACKNOWLEDGE
[2016-06-12 09:41] LABS: ALBUMIN 3.3 g/dL (3.5-5.0)
[2016-06-12 09:59] LABS: PTH INTACT 509 pg/mL (15-65)
[2016-06-12] MEDS ORDERED: CALCIUM GLUCONATE 1000 MG/10 ML INJ IV SCH ×2 (10:00→11:00)
[2016-06-12] MEDS ORDERED: HEPARIN SOD (PORCINE) 1,000 UNIT/ML 10 ML VIAL IV PRN (11:08)
[2016-06-12] MEDS ORDERED: EPOETIN ALFA 10,000 UNIT in SYRINGE, DISPOSABLE, 1 EACH IV ONE (12:15)
[2016-06-12] MEDS ORDERED: DOCUSATE SODIUM 100 MG CAPSULE PO ONE (12:30)
[2016-06-12] MEDS ORDERED: BISACODYL 5 MG TABEC PO ONE (12:30)
--- NOTE | 2016-06-12 12:31 | PDOC PROGRESS REPORT ---
Subjective Progress Note for:: 06/12/16 Subjective:: Seen on HD today.Got a right IJ catheter yesterday without events. Went over the procedure.No kristina symptoms of tetany.The muscle stiffness is better.No more dyspnea. Physical Exam Vital Signs: Temp Pulse Resp BP Pulse Ox 98.7 F 73 20 161/84 H 97 06/12/16 07:57 06/12/16 07:57 06/12/16 07:57 06/12/16 07:57 06/12/16 07:57 Intake & Output 06/11/16 06/12/16 06/13/16 06:59 06:59 06:59 Intake Total 0 1636 Output Total 4100 3295 Balance -4100 -1659 Weight 164.9 kg 161.6 kg General appearance: PRESENT: no acute distress Respiratory exam: PRESENT: clear to auscultation german. ABSENT: crackles, rhonchi Cardiovascular exam: PRESENT: +S1, +S2 GI/Abdominal exam: PRESENT: soft. ABSENT: organomegaly, tenderness Extremities exam: ABSENT: pedal edema Results Laboratory Results: 06/12/16 05:25 06/12/16 05:25 06/10/16 06/11/16 06/12/16 18:10 06:55 05:25 WBC RBC Hgb Hct MCV MCH MCHC RDW Plt Count Sodium 138.5 Potassium 4.9 Chloride 105 Carbon Dioxide 16 L Anion Gap 18 BUN 94 H Creatinine 10.25 H Est GFR ( Amer) 7 L Est GFR (Non-Af Amer) 6 L Glucose 96 Calcium 6.2 L* Magnesium 1.7 Transferrin 190 L Albumin PTH Intact 509 H 06/12/16 06/12/16 05:25 05:25 WBC 8.5 RBC 3.30 L Hgb 9.2 L Hct 29.7 L MCV 90 MCH 28.0 MCHC 31.2 L RDW 14.5 H Plt Count 199 Sodium Potassium Chloride Carbon Dioxide Anion Gap BUN Creatinine Est GFR ( Amer) Est GFR (Non-Af Amer) Glucose Calcium Magnesium Transferrin Albumin 3.3 L PTH Intact 06/10/16 06/11/16 06/11/16 18:10 00:35 06:55 Troponin I 0.016 0.015 0.018 Impressions: Renal Ultrasound 06/10/16 15:13 IMPRESSION: LIMITED STUDY. POLYCYSTIC KIDNEY DISEASE WITH INNUMERABLE CYSTS OF VARYING SIZE AND DENSITY IN BOTH KIDNEYS. NO GROSS HYDRONEPHROSIS VISUALIZED. Guidance Fluoroscopy 06/11/16 00:00 IMPRESSION: IMAGE(S) OBTAINED DURING PROCEDURE. Chest X-Ray 06/11/16 12:42 IMPRESSION: No pneumothorax post right jugular central venous dialysis catheter placement, catheter tip in the right atrium. Assessment & Plan - Diagnosis (1) CKD (chronic kidney disease) stage V requiring chronic dialysis Plan: He is undergoing HD without any issues.VS stable. Orders went over with RN. Plan to UF around 2 L.Start EPO.OK to Dc from a renal Point of view and next HD would be as OP at [facility] on Wednesday. Dc [employer] General Manager to cordinate / liason. Read PPD today prior to dc.Discussed with Dr Hester/ hospitalist. (2) Anemia Qualifiers: Other causes of anemia: chronic disease, kidney Is this a current diagnosis for this admission?: YesPlan: Initiate epo if BP better. (3) PCK (polycystic kidney disease) Is this a current diagnosis for this admission?: Yes (4) Hypocalcemia Is this a current diagnosis for this admission?: YesPlan: He has no symptoms of tetany. Continue IV calcium followed by by mouth calcium as well as. Has been begun on Vit D3. (5) Hypomagnesemia Is this a current diagnosis for this admission?: Yes (6) CHF (congestive heart failure) Plan: resolved (7) Hypertension Plan: See response to HD and later needs titration of meds.
[2016-06-12] MEDS: NIFEDIPINE 30 MG TAB.ER.24 PO SCH (12:56)
[2016-06-12] MEDS: MAGNESIUM OXIDE 400 MG TABLET PO SCH (12:57)
[2016-06-12] MEDS: CLONIDINE HCL 0.1 MG TABLET PO SCH (12:58)
[2016-06-12] MEDS: CALCITRIOL 0.25 MCG CAPSULE PO SCH (12:58)
[2016-06-12 14:44] LABS: HEPATITIS BE AB Negative (Negative)
[2016-06-12 16:02] VITALS: BP 170/92
--- NOTE | 2016-06-12 16:53 | PDOC DISCHARGE SUMMARY ---
General - Admit/Disc Date/PCP Admission Date/Primary Care Provider: 06/10/16 16:17 Discharge Date: 06/12/16 - Discharge Diagnosis (1) CKD (chronic kidney disease) stage V requiring chronic dialysis Is this a current diagnosis for this admission?: YesSummary: Dr. Alva placed permacath. Dr. Cross began hemodialysis today and recommends discharge home. Patient is instructed to presented [facility] for intake on Wednesday for continuation of hemodialysis on Wednesday. (2) PCK (polycystic kidney disease) Is this a current diagnosis for this admission?: YesSummary: Nephrology managing (3) Accelerated secondary hypertension Is this a current diagnosis for this admission?: YesSummary: Successfully achieved to 25% reduction in his systolic blood pressures. Further titration per nephrology. (4) Pulmonary edema Is this a current diagnosis for this admission?: YesSummary: Improved after diuresis and hemodialysis. (5) Anemia Is this a current diagnosis for this admission?: Yes (6) Hypocalcemia Is this a current diagnosis for this admission?: Yes (7) Hypomagnesemia Is this a current diagnosis for this admission?: Yes - Additional Information Resuscitation Status: Full Code Discharge Diet: Other (Comments) - low salt, low potassium Discharge Activity: Activity As Tolerated Home Medications: Acetaminophen [Tylenol 325 mg Tablet] 650 mg PO Q4HP PRN #0 tablet 06/12/16 Calcitriol [Rocaltrol 0.25 mcg Capsule] 0.5 mcg PO BID #0 capsule 06/12/16 Calcium Acetate [Phoslo 667 mg Capsule] 1,334 mg PO MEALS #0 capsule 06/12/16 Calcium Carbonate [Tums Chewable 500 mg Tab.chew] 1,000 mg PO BID #0 tab.chew Clonidine HCl [Catapres 0.1 mg Tablet] 0.1 mg PO Q12 #60 tablet 06/12/16 Hydralazine HCl [Apresoline 50 mg Tablet] 50 mg PO Q8 #90 tablet 06/12/16 Magnesium Oxide [Mag-Ox 400 mg Tablet] 400 mg PO BID #0 tablet 06/12/16 Nifedipine [Procardia XL 30 mg Tablet] 30 mg PO DAILY #0 tab.er.24 06/12/16 History of Present Illness History of Present Illness: KIERAN LOVE is a 45 year old male cared for by the local [facility] carrying a known diagnosis of polycystic kidney disease previously seen by Dr. Cross, voice engineer in consultation who presents to the emergency department with progressive lower extremity swelling, difficulty breathing when lying flat , progressive weakness to the point that he cannot perform normal activities of daily living. He was recently seen in the emergency department on May 28 and diagnosed with lower extremity cellulitis and placed on a sulfa antibiotic for 5d and changed his antihypertensive regimen taking him off clonidine and Norvasc and placing him on nifedipine. He noticed no change in the lower extremity rash however his lower extremity edema continued to worsen. He denies chest pain or palpitations. He reports continuing to produce urine but has noticed a drop off in volume and frequency over the last week. He was seen at [facility] yesterday and given 2 injections of IM Lasix without effect. Evaluation in the emergency department shows pulmonary edema, markedly elevated systolic and diastolic blood pressures, and clinical findings suggestive of acute heart failure with worsening of his renal function from a serum creatinine of over 8 one year ago to now over 10 for persistent metabolic acidosis and numerous electrolyte abnormalities. We were asked to admit the patient for further evaluation and management. Hospital Course Hospital Course: KIERAN LOVE is a 45 year old malecared for by the local [facility] carrying a known diagnosis of polycystic kidney disease previously seen by Dr. Cross, voice engineer in consultation who presents to the emergency department with progressive lower extremity swelling, difficulty breathing when lying flat , progressive weakness to the point that he cannot perform normal activities of daily living. He was recently seen in the emergency department on May 28 and diagnosed with lower extremity cellulitis and placed on a sulfa antibiotic for 5d and changed his antihypertensive regimen taking him off clonidine and Norvasc and placing him on nifedipine. He noticed no change in the lower extremity rash however his lower extremity edema continued to worsen. He denies chest pain or palpitations. He reports continuing to produce urine but has noticed a drop off in volume and frequency over the last week. He was seen at [facility] yesterday and given 2 injections of IM Lasix without effect. Evaluation in the emergency department shows pulmonary edema, markedly elevated systolic and diastolic blood pressures, and clinical findings suggestive of acute heart failure with worsening of his renal function from a serum creatinine of over 8 one year ago to now over 10 for persistent metabolic acidosis and numerous electrolyte abnormalities. We were asked to admit the patient for further evaluation and management. Full catheter was placed for strict I's and O's patient does continue to make urine. Lasix IV was started with good results. Dr. Cross, nephrology, was consult and anticipates initiating hemodialysis on Wednesday. Dr. Alva consulted for permacath placement scheduled later today. Overall the patient's condition is improved with at least mild diuresis. He has complaints of muscle aches and cramps. His electrolytes are a bit abnormal including low magnesium and low calcium. Both of those were replaced by Dr. Cross. His successfully tolerated his first session of hemodialysis and is scheduled to establish with debridement on Wednesday. Per discussion with Dr. Cross patient is stable for discharge home at this time. Physical Exam Vital Signs: Temp Pulse Resp BP Pulse Ox 98.2 F 86 22 H 170/92 H 98 06/12/16 16:13 06/12/16 16:13 06/12/16 16:13 06/12/16 16:13 06/12/16 16:13 Intake & Output 06/11/16 06/12/16 06/13/16 06:59 06:59 06:59 Intake Total 0 1636 840 Output Total 4100 3295 1280 Balance -4100 -7769 -440 Weight 164.9 kg 161.6 kg General appearance: PRESENT: no acute distress Mouth exam: PRESENT: moist Respiratory exam: PRESENT: clear to auscultation german Results Laboratory Results: 06/12/16 05:25 06/12/16 05:25 06/10/16 06/11/16 06/12/16 18:10 06:55 05:25 WBC RBC Hgb Hct MCV MCH MCHC RDW Plt Count Sodium 138.5 Potassium 4.9 Chloride 105 Carbon Dioxide 16 L Anion Gap 18 BUN 94 H Creatinine 10.25 H Est GFR ( Amer) 7 L Est GFR (Non-Af Amer) 6 L Glucose 96 Calcium 6.2 L* Magnesium 1.7 Transferrin 190 L Albumin PTH Intact 509 H 06/12/16 06/12/16 05:25 05:25 WBC 8.5 RBC 3.30 L Hgb 9.2 L Hct 29.7 L MCV 90 MCH 28.0 MCHC 31.2 L RDW 14.5 H Plt Count 199 Sodium Potassium Chloride Carbon Dioxide Anion Gap BUN Creatinine Est GFR ( Amer) Est GFR (Non-Af Amer) Glucose Calcium Magnesium Transferrin Albumin 3.3 L PTH Intact 06/10/16 06/11/16 06/11/16 18:10 00:35 06:55 Troponin I 0.016 0.015 0.018 Impressions: Renal Ultrasound 06/10/16 15:13 IMPRESSION: LIMITED STUDY. POLYCYSTIC KIDNEY DISEASE WITH INNUMERABLE CYSTS OF VARYING SIZE AND DENSITY IN BOTH KIDNEYS. NO GROSS HYDRONEPHROSIS VISUALIZED. Guidance Fluoroscopy 06/11/16 00:00 IMPRESSION: IMAGE(S) OBTAINED DURING PROCEDURE. Chest X-Ray 06/11/16 12:42 IMPRESSION: No pneumothorax post right jugular central venous dialysis catheter placement, catheter tip in the right atrium. Qualifiers PATEINT BEING DISCHARGED WITH ANY OF THE FOLLOWING DIAGNOSIS?: No Plan Discharge Plan: Discharge home with follow-up with Dr. Cross on Wednesday to establish with me and for ongoing hemodialysis. [facility] with the local [facility] for ongoing management of his medical problems. Time Spent: Greater than 30 Minutes
[2016-06-12] MEDS ORDERED: TUBERCULIN,PURIF.PROT.DERIV. 5 TU/0.1 ML TEST 1 ML VIAL ID PRN (18:00)
== END 2016-06-12 17:18 | disposition home or self-care (01) | DRG 699 ==
LOC: ER 12:40 → UNDOADMIN 15:39 → EH 15:39 → 4N 17:10
PROC: B244YZZ Ultrasonography of Right Heart using Other Contrast (ICD-10-PCS; 2016-06-11)
PROC: 02H633Z Insertion of Infusion Device into Right Atrium, Percutaneous Approach (ICD-10-PCS; principal; 2016-06-11 11:30)
PROC: 5A1D00Z (ICD-10-PCS; 2016-06-12)
DX: E11.22 Type 2 diabetes mellitus with diabetic chronic kidney disease (principal); I13.2 Hypertensive heart and chronic kidney disease with heart failure and with stage 5 chronic kidney disease, or end stage renal disease; E87.2 Acidosis; Q61.3 Polycystic kidney, unspecified; Z68.41 Body mass index [BMI] 40.0-44.9, adult; N18.5 Chronic kidney disease, stage 5; I50.9 Heart failure, unspecified; D63.1 Anemia in chronic kidney disease; E78.5 Hyperlipidemia, unspecified; E83.51 Hypocalcemia; E83.42 Hypomagnesemia; E66.01 Morbid (severe) obesity due to excess calories; Z59.8 Other problems related to housing and economic circumstances; Z88.0 Allergy status to penicillin
CPT/HCPCS: 36415; 532; 71010; 71020; 76770; 77001; 80048; 80053; 80061; 81001; 82040; 82607; 82652; 82728; 82746; 83036; 83540; 83550; 83735; 83880; 83970; 84100; 84439; 84443; 84466; 84484; 85025; 85027; 85045; 85610; 86704; 86705; 86706; 86707; 86803; 87340; 87350; 93005; 93010; 93306; 96374; 99285; C1752; J0360; J0610; J1644; J1940; J2250; J2704; J3010; J3370; J3475; J3490; Q4081; Q9967

== ENCOUNTER 2016-06-22 10:00 | Day surgery (SDC) | payer SELFPAY ==
[~2016-06-22 10:00] MED LIST: BACITRACIN INJ 50,000 UNIT VIAL ONE; BUPIVACAINE HCL 0.25 % INJ/PF (2.5 MG/1 ML) 30 ML VIAL ONE; GLYCOPYRROLATE INJ 0.4 MG/2 ML VIAL ONE; LIDOCAINE 0.5% INJ-PF (5 MG/ML) 50 ML SDV ONE; LIDOCAINE 2% INJ-PF (20 MG/ML) 10 ML AMPUL ONE; METOCLOPRAMIDE HCL INJ/PF 10 MG/2 ML SDV ONE; NEOSTIGMINE METHYLSULFATE 10 MG/10 ML VIAL ONE; ONDANSETRON HCL INJ/PF 4 MG/2 ML SDV ONE; ROCURONIUM BROMIDE INJ 50 MG/5 ML VIAL IV ONE; SUCCINYLCHOLINE CHLORIDE INJ 200 MG/10 ML VIAL ONE; VANCOMYCIN HCL 500 MG in DEXTROSE 5%-WATER 100 ML IV PRN
[2016-06-22 11:04] LABS: HEMATOCRIT 29.2 % (37.9-51.0); HEMOGLOBIN 9.6 g/dL (13.5-17.0); HGB HCT DIFFERENCE -0.4; MEAN CORPUSCULAR HEMOGLOBIN 29.6 pg (27.0-33.4); MEAN CORPUSCULAR HGB CONC 32.9 g/dL (32.0-36.0); MEAN CORPUSCULAR VOLUME 90 fl (80-97); RED BLOOD COUNT 3.24 10^6/uL (4.35-5.55); RED CELL DISTRIBUTION WIDTH 14.4 % (11.5-14.0); WHITE BLOOD COUNT 9.6 10^3/uL (4.0-10.5)
[2016-06-22] MEDS ORDERED: HEPARIN SOD (PORCINE) 1,000 UNIT/ML 10 ML VIAL ONE (11:16)
[2016-06-22 11:19] LABS: ANION GAP 19 (5-19); BLOOD UREA NITROGEN 94 mg/dL (7-20); CALCIUM 8.5 mg/dL (8.4-10.2); CARBON DIOXIDE 20 mmol/L (22-30); CHLORIDE 100 mmol/L (98-107); CREATININE RESULT 9.54 mg/dL (0.52-1.25); GLUCOSE 108 mg/dL (75-110); POTASSIUM 4.6 mmol/L (3.6-5.0); SODIUM 138.9 mmol/L (137-145)
[2016-06-22] MEDS ORDERED: FENTANYL CITRATE INJ/PF 250 MCG/5 ML AMPULE ONE (11:40)
[2016-06-22] MEDS ORDERED: MIDAZOLAM 2 MG/2 ML INJ ONE (11:40)
[2016-06-22] MEDS ORDERED: PROPOFOL INJ 200 MG/20 ML VIAL IV ONE (11:40)
[2016-06-22] MEDS ORDERED: MORPHINE SULFATE 10 MG/ML INJ ONE (11:41)
[2016-06-22] MEDS ORDERED: DIPHENHYDRAMINE HCL 50 MG/ML VIAL IV PRN (13:28)
[2016-06-22] MEDS ORDERED: PROMETHAZINE HCL INJ 25 MG/1 ML VIAL IV PRN ×2 (13:28)
[2016-06-22] MEDS ORDERED: OXYCODONE-ACETAMINOPHEN 5-325 MG TABLET PO PRN ×2 (13:28)
[2016-06-22] MEDS ORDERED: MORPHINE SULFATE 10 MG/ML INJ IV PRN (13:28)
[2016-06-22] MEDS ORDERED: MEPERIDINE HCL/PF INJ 25 MG/1 ML DISP.SYRIN IV PRN (13:28)
[2016-06-22] MEDS ORDERED: FENTANYL CITRATE INJ/PF 100 MCG/2 ML AMPUL IV PRN ×3 (13:28)
--- NOTE | 2016-06-22 13:52 | PDOC DISCHARGE SUMMARY ---
Discharge Summary (SDC) - Discharge Final Diagnosis: #1 end-stage renal disease on dialysis. #2 diabetes mellitus type II. #3 hypertension. Date of Surgery: 06/22/16 Discharge Date: 06/22/16 Condition: Good Treatment or Instructions: #1 activities within moderation encouraged. #2 follow up in my office by appointment in about 1 week. Call for appointment. #3 the wounds covered clean and dry until office visit. #4 hold off on school/work until evaluation in office. #5 may shower in 48 hours, keep operated area as dry as possible. #6 discharge from ambulatory to when ASU criteria met. #7 medications per medication reconciliation sheet. #8 Percocet up to 400 when necessary for pain. Prescriptions: Oxycodone HCl/Acetaminophen [Percocet 5-325 mg Tablet] 1 tab PO ASDIR PRN #15 tab PRN Reason: Discharge Diet: Other (Comments) - Renal Respiratory Treatments at Home: Deep Breathing/Coughing Discharge Activity: Activity As Tolerated Report the Following to Your Physician Immediately: Shortness of Breath, Unusual Bleeding
[2016-06-22] MEDS ORDERED: MEPERIDINE HCL/PF INJ 25 MG/1 ML DISP.SYRIN ONE (14:04)
--- NOTE | 2016-06-22 15:47 | EKG REPORT ---
SEVERITY:- ABNORMAL ECG - SINUS RHYTHM PROBABLE LEFT ATRIAL ABNORMALITY ANTERIOR INFARCT, OLD : Confirmed by: Charity Valverde 22-Jun-2016 15:46:15
[2016-06-22 16:11] VITALS: BP 174/75
--- NOTE | 2016-06-22 17:21 | Operative Report ---
Operative Report DATE OF SURGERY: 06/22/16 PREOPERATIVE DIAGNOSIS: #1 end-stage renal disease. #2 diabetes mellitus. #3 obesity. #4 hypertension. POSTOPERATIVE DIAGNOSIS: #1 end-stage renal disease. #2 diabetes mellitus. #3 obesity. #4 hypertension. OPERATION: #1 laparoscopic guided insertion of peritoneal dialysis catheter. SURGEON: ROME PRATT REPLANTING MACHINE CREWMAN: YOLI MACK ANESTHESIA: GA TISSUE REMOVED OR ALTERED: Not applicable. COMPLICATIONS: None ESTIMATED BLOOD LOSS: 10 mL. INTRAOPERATIVE FINDINGS: Of an obese abdomen with a significant pannus. The pannus was completely avoided during the procedure. The coil of the catheter was placed well down in the pelvis. There was easy ingress of a liter of heparinized saline and egress of 800 mils. The exit site was positioned just below the belt line in this patient. The large abdomen is of concern but I believe the patient will have sufficient visualization to utilize it with efficacy. PROCEDURE: After obtaining informed consent and going over the procedure with [the patient ], he was taken to the operating room, [he was] anesthetized and intubated. The abdomen was prepped and draped in the usual sterile fashion. After the universal timeout, in which it was verified that the patient received IV antibiotic, the procedure commenced. The topographical location for the peritoneal dialysis catheter was sketched by applying it to the anterior abdominal wall. The reference point was the pubic symphysis the coil of the catheter, just beneath this level. In this way the position for the cuffs and the external catheter exit were ascertained and marked. The catheter was now replaced in antibiotic containing solution. An entry into the abdomen was sketched just to the right of the midline and transversely in the epigastrium. Local anesthesia was infiltrated. A 1 cm, transverse incision was made with a [15 blade scalpel]. Dissection now proceeded to the medial aspect of the right rectus sheath. This was opened and the muscle gently reflected. The posterior rectus sheath and peritoneum were opened between hemostats and entry was gained to the peritoneal cavity. This allowed introduction of a 5 mm laparoscopic port. The abdomen was now insufflated with carbon dioxide up to a maximum pressure of 12 mm of mercury. The camera was inserted and a good view gained of the abdomen. Photographs were taken. Local anesthesia was now infiltrated and an incision made in respect to the curve of the catheter. A 1 cm transverse incision was made at this point and dissection proceeded down to the rectus sheath. This was opened and a Veress needle on a reducing sleeve were were now introduced through the rectus muscle and the manipulated down to about 4 cm inferior to the incision. The peritoneum was now entered and the Veress needle removed. The internal cannula was now placed under direct vision. A swan neck peritoneal dialysis catheter was now placed on a stylette. Great care was taken to keep the orientation in reference to the white line on the catheter. It was now inserted into the peritoneal cavity under direct vision, through the introducer. As the catheter entered the abdomen the stylette was slowly withdrawn allowing it to assume its normal orientation and shape within the peritoneal cavity. Both the stylet and introducer were removed so as to place the internal cuff about 3 cm from the entry point of the peritoneal cavity, and within the rectus sheath. This was verified with respect to the incision. The external curve of the catheter was allowed to form precisely at the level of the incision. [In this patient, because of obesity, a second 5 mm port was placed in the right midabdomen, under camera vision. This allowed the introduction of a grasper. The grasper was used to take the coil of the peritoneal dialysis catheter and to manipulate it and into the true pelvis. This was done successfully with a very nice appearance of the catheter in the abdomen. ] Externally the catheter was affixed to a Mary Kate stylette which was now used to tunnel the catheter in the subcutaneous tissues to its exit site where it was now used to exit the skin. The catheter orientation and position and, particularly the 2 cuffs of the catheter were verified. Once this was done the external portion of the catheter was affixed to a Leur lock adapter and connected to a sterile IV tubing. This allowed introduction of 1 L of heparinized saline into the peritoneal cavity via the catheter. This occurred with brisk and free flow of fluid into the peritoneal cavity. Once the entire liter had been infused, the bag was now placed beneath the level of the patient and very satisfactory outflow was observed. With this in place, the camera and the catheter were removed and abdomen desufflated. The subcutaneous tissue in each incision was closed with interrupted 3-0 PDS. The skin in each incision was closed using interrupted and continuous sutures of 4-0 Monocryl. Once about 800 mils of the Infusaid had been passively removed from the abdomen, the catheter was flushed with 10 mL of heparinized solution and capped. The bio a patch was applied at the exit site. Benzoin was applied and Steri-Strips used to reinforce each of the wounds. It was also used to help anchor the Biopatch. It was also used to anchor the main catheter so that any external pressure would not dislodge the catheter. Dry gauze and tape applied and the procedure concluded. The first aid instructor provided retraction, thus facilitating the operative view. Controlled bleeding. She also assisted with camera visualization. The first aid instructor also followed the suturing, thus facilitating accurate suture placement. .
== END 2016-06-22 16:00 | disposition home or self-care (01) ==
LOC: OROUT 10:00
PROVIDERS: ATTEND Surgery
PROC: 0WHG43Z Insertion of Infusion Device into Peritoneal Cavity, Percutaneous Endoscopic Approach (ICD-10-PCS; principal; 2016-06-22 12:00)
DX: I12.0 Hypertensive chronic kidney disease with stage 5 chronic kidney disease or end stage renal disease (principal); N18.6 End stage renal disease; Z99.2 Dependence on renal dialysis; E11.9 Type 2 diabetes mellitus without complications; Z88.0 Allergy status to penicillin; I25.2 Old myocardial infarction; E66.01 Morbid (severe) obesity due to excess calories; Z68.42 Body mass index [BMI] 45.0-49.9, adult
CPT/HCPCS: 36415; 85027; 80048; 93005; 93010; 49324; J2250; J3490 ×4; J3010; J1644; J2175; J2765; J2270; J0330; J2405; J3370; J2704; J1642; 840

== ENCOUNTER 2016-09-21 09:43 | Day surgery (SDC) | payer MEDICARE, MEDICAID ==
[2016-09-18 11:00] LABS: HEMATOCRIT 36.6 % (37.9-51.0); HGB HCT DIFFERENCE -0.6; MEAN CORPUSCULAR HEMOGLOBIN 29.6 pg (27.0-33.4); MEAN CORPUSCULAR HGB CONC 32.9 g/dL (32.0-36.0); MEAN CORPUSCULAR VOLUME 90 fl (80-97); RED BLOOD COUNT 4.07 10^6/uL (4.35-5.55); RED CELL DISTRIBUTION WIDTH 15.5 % (11.5-14.0); WHITE BLOOD COUNT 8.9 10^3/uL (4.0-10.5)
[2016-09-18 11:19] LABS: ANION GAP 17 (5-19); BLOOD UREA NITROGEN 49 mg/dL (7-20); CALCIUM 8.6 mg/dL (8.4-10.2); CARBON DIOXIDE 26 mmol/L (22-30); CHLORIDE 98 mmol/L (98-107); CREATININE RESULT 8.15 mg/dL (0.52-1.25); GLUCOSE 134 mg/dL (75-110); SODIUM 140.5 mmol/L (137-145)
--- NOTE | 2016-09-18 21:49 | EKG REPORT ---
SEVERITY:- ABNORMAL ECG - SINUS RHYTHM BORDERLINE LEFT AXIS DEVIATION ANTERIOR INFARCT, OLD BORDERLINE T ABNORMALITIES, INFERIOR LEADS : Confirmed by: Diana Mosley MD 18-Sep-2016 21:48:11
[~2016-09-21 09:43] MED LIST changes: +HEPARIN SOD (PORCINE) 1,000 UNIT/ML 10 ML VIAL ONE; +HEPARIN SODIUM,PORCINE/NS/PF 0 UNIT/0 ML RTUINJ IV ONE; +LIDOCAINE 0.5% INJ-PF (5 MG/ML) 50 ML SDV SUBCUT PRN; +LIDOCAINE 1% INJ-PF (10 MG/ML) 30 ML SDV ONE; -NEOSTIGMINE METHYLSULFATE 10 MG/10 ML VIAL ONE; +NORMAL SALINE 1000 ML (RENAL PATIENTS) IV PRN; -ROCURONIUM BROMIDE INJ 50 MG/5 ML VIAL IV ONE; -SUCCINYLCHOLINE CHLORIDE INJ 200 MG/10 ML VIAL ONE
--- NOTE | 2016-09-21 10:00 | Operative Report ---
Operative Report DATE OF SURGERY: 09/21/16 PREOPERATIVE DIAGNOSIS: #1 malfunctioning AV fistula. #2 end-stage renal disease on hemodialysis. #3 chronic anticoagulation. #4 hypertension. #5 anxiety. #6 syndrome. #7 multiple comorbidities. POSTOPERATIVE DIAGNOSIS: #1 malfunctioning AV fistula. #2 end-stage renal disease on hemodialysis. #3 chronic anticoagulation. #4 hypertension. #5 anxiety. #6 syndrome. #7 multiple comorbidities. OPERATION: #1 needle access into fistula. #2 fistula angioplasty. #3 angiogram and interpretation. SURGEON: ROME CHUN 1ST MEDICAL DIRECTOR OCCUPATIONAL HEALTH: none ANESTHESIA: Moderate Sedation TISSUE REMOVED OR ALTERED: Not applicable COMPLICATIONS: None ESTIMATED BLOOD LOSS: 2 mL. INTRAOPERATIVE FINDINGS: Of stenoses each about 1.5 cm long and 80% of the adjacent lumen. At about 18 cm and at 25 cm. 4 easily dilated and appeared almost to be some rather than stenosis. Nevertheless they responded to dilatation very nicely with softening of the fistula. PROCEDURE: PROCEDURE: After verifying the procedure and having obtained informed consent, the patient's right arm was prepared with Chlorhexidine and draped out with sterile linen. Local anesthesia infiltrated. Percutaneous access into the fistula ,[ antegrade], obtained about [2 cm] from the arteriovenous anastomosis using a micro puncture needle followed by micro puncture wire and then a micro puncture catheter. Angiogram demonstrated the aforementioned findings. Angioplasty was elected. A 0.035 [place] wire was inserted, and over this, a 6 [place] short introducer was placed, this was followed by a [8] angioplasty balloon . Angioplasty was Done under hand injection at the affected areas.. Inflating up to estimated 60 atmospheres for a minute at a time.]. Completion angiogram demonstrated [satisfactory result]. The instrumentation was now withdrawn over a hand-held pressure for 15 minutes.. Dressings applied , procedure concluded. Exposure time: 0.3 minutes Radiation: 28 jewell per centimeters squared Contrast: 25 mL of Isovue-M 300, low osmolality. DICTATING PHYSICIAN: ROME CHUN M.D. cc: ROME CHUN M.D. ([id number]) >>
[2016-09-21] MEDS ORDERED: NITROGLYCERIN/D5W 0 MG/0 ML RTUINJ IV ONE (11:03)
[2016-09-21 11:13] LABS: POTASSIUM 5.7 mmol/L (3.6-5.0)
[2016-09-21] MEDS ORDERED: FENTANYL CITRATE INJ/PF 100 MCG/2 ML AMPUL ONE (11:15)
[2016-09-21] MEDS ORDERED: PROPOFOL INJ 200 MG/20 ML VIAL IV ONE (11:16)
[2016-09-21] MEDS ORDERED: MIDAZOLAM 2 MG/2 ML INJ ONE (11:16)
[2016-09-21] MEDS ORDERED: ACETAMINOPHEN 100 ML IV ONE (11:16)
[2016-09-21] MEDS ORDERED: DEXMEDETOMIDINE INJ 80 MCG/20 ML VIAL IV ONE (11:16)
[2016-09-21] MEDS ORDERED: DIPHENHYDRAMINE HCL 50 MG/ML VIAL IV PRN (12:44)
[2016-09-21] MEDS ORDERED: OXYCODONE-ACETAMINOPHEN 5-325 MG TABLET PO PRN ×2 (12:44)
[2016-09-21] MEDS ORDERED: FENTANYL CITRATE INJ/PF 100 MCG/2 ML AMPUL IV PRN ×3 (12:44)
[2016-09-21] MEDS ORDERED: PROMETHAZINE HCL INJ 25 MG/1 ML VIAL IV PRN ×2 (12:44)
[2016-09-21] MEDS ORDERED: MEPERIDINE HCL/PF INJ 25 MG/1 ML DISP.SYRIN IV PRN (12:44)
[2016-09-21] MEDS ORDERED: MORPHINE SULFATE 10 MG/ML INJ IV PRN (12:44)
--- NOTE | 2016-09-21 14:38 | PDOC DISCHARGE SUMMARY ---
Discharge Summary (SDC) - Discharge Final Diagnosis: #1 end-stage renal disease on hemodialysis. #[address] #[address]. #4 diabetes mellitus type II. #5 body mass index 45-49.9. #6 hypertension. Date of Surgery: 09/21/16 Discharge Date: 09/21/16 Condition: Fair Treatment or Instructions: #1 activities within moderation encouraged. #2 follow up in my office by appointment in about 1 week. Call for appointment. #3 the wounds covered clean and dry until office visit. #4 hold off on school/work until evaluation in office. #5 may shower in 48 hours, keep operated area as dry as possible. #6 discharge from ambulatory when ASU criteria met. #7 Percocet prescription. Prescriptions: Oxycodone HCl/Acetaminophen [Percocet 5-325 mg Tablet] 1 tab PO ASDIR PRN #15 tab PRN Reason: Discharge Diet: Other (Comments) - Renal Respiratory Treatments at Home: Deep Breathing/Coughing Discharge Activity: Activity As Tolerated Report the Following to Your Physician Immediately: Shortness of Breath, Unusual Bleeding
[2016-09-21 17:40] VITALS: BP 140/88
--- NOTE | 2016-09-21 18:01 | Operative Report ---
Operative Report DATE OF SURGERY: 09/21/16 PREOPERATIVE DIAGNOSIS: #1 end-stage renal disease on hemodialysis. #[address] #[address]. #4 increased body mass index. #5 diabetes mellitus type II. #6 hypertension. POSTOPERATIVE DIAGNOSIS: #1 malfunctioning AV fistula. #2 end-stage renal disease on hemodialysis. #3 chronic anticoagulation. #4 hypertension. #5 anxiety. #6 syndrome. #7 multiple comorbidities. OPERATION: #1 needle access into fistula. #2 fistula angioplasty. #3 angiogram and interpretation. SURGEON: ROME PRATT CERTIFIED NURSE AIDE: none ANESTHESIA: LMAC TISSUE REMOVED OR ALTERED: Not applicable COMPLICATIONS: None ESTIMATED BLOOD LOSS: 10 mL. INTRAOPERATIVE FINDINGS: Of a satisfactory cephalic vein accepting a 3 mm coronary dilator. The dominant vein was quite dorsal and extended over the dorsum of the hand. It was harvested to a bifurcation which was incorporated in the anastomosis. Spatulated to form a branch point anastomosis. The radial artery was somewhat smaller, probably in spasm but easily 2.5 or more millimeters. Good thrill and bruit were appreciated. Appropriate third waveform in the proximal [place] radial artery, more multiphasic in the distal radial artery artery and continuous in the fistula. PROCEDURE: Operative Report PROCEDURE: After reviewing the procedure with the patient, he was taken to the operating room. The patient was sedated and the left upper extremity] prepared with chlorhexidine and draped out with sterile linen. After the "" universal timeout", in which it was verified that the patient [received IV antibiotics] the procedure commenced. The sterilely sheathed ultrasound probe was used to evaluate the left venous and arterial systems, pertinent to the previously done vein mapping. Local anesthesia was infiltrated and a longitudinal incision made over the mid forearm , over the most distal reasonable looking radial artery. Dissection proceeded through the subcutaneous tissues down to the radial artery. This was dissected out proximally and distally for about 2 cm. . Rubber loops were placed on either end. The cephalic vein was now dissected out for a distance of about 6 cm. The patient was given 2500 units of heparin intravenously. The cephalic vein was transected and irrigated with heparinized solution. The distal branches were clipped Coronary dilators were accepted [up to 3. mm]. The artery was controlled proximally and distally with rubber loops. The vein was transposed into the arterial incision using a hemostat. An arteriotomy approximately 1.2 cm in length was made, the artery was irrigated proximally and distally with heparinized solution. The transected vein was now spatulated [using a convenient branch, the so called branch patch technique, it was then anastomosed end to end to side into the brachial artery. This was done using a continuous suture of 6-0 Prolene. Controls of the fistula were now released and it was analyzed using a Doppler probe. Hemostasis was secured once optimal function was assured, the wound was irrigated with antibiotic containing solution and closed. Closure was done using interrupted 3-0 PDS for the subcutaneous tissues. The skin was closed, in either wound, using a continuous subcutaneous suture of 4-0 Monocryl which was reinforced with Steri-Strips over benzoin. I then left the operative field and returned with a stethoscope covered with a sterile Tegaderm dressing. This allowed external auscultation of the fistula. Auscultation was [satisfactory]. The procedure was concluded by applying a Kerlix dressing over the surgical site. DICTATING PHYSICIAN: ROME CHUN M.D.
--- NOTE | 2016-09-21 18:04 | Operative Report ---
Operative Report DATE OF SURGERY: 09/21/16 PREOPERATIVE DIAGNOSIS: #1 end-stage renal disease on hemodialysis. #[address] #[address]. #4 increased body mass index. #5 diabetes mellitus type II. #6 hypertension. POSTOPERATIVE DIAGNOSIS: #1 malfunctioning AV fistula. #2 end-stage renal disease on hemodialysis. #3 chronic anticoagulation. #4 hypertension. #5 anxiety. #6 syndrome. #7 multiple comorbidities. OPERATION: Removal of peritoneal dialysis catheter. SURGEON: ROME PRATT DIRECTOR OF LOGISTICS: none ANESTHESIA: LMAC TISSUE REMOVED OR ALTERED: Not applicable ESTIMATED BLOOD LOSS: 10 mL. INTRAOPERATIVE FINDINGS: Of a well-founded peritoneal dialysis catheter. The superficial cuff just slightly loose. The peritoneal dialysis catheter removed and in its entirety and discarded. PROCEDURE: After verifying the procedure, the patient was taken to the operating room and positioned supine. After his left forearm fistula was inserted our attention now turned to the abdomen. The patient was appropriately sedated. After the universal timeout and of course after preparation the procedure commenced. Local anesthesia infiltrated and a vertical incision 2.5 cm in length made over the mid point of the catheter. Dissection now proceeded through the to the subcutaneous tissues. The catheter was dissected out and the cuff dissected in a retrograde fashion. Once this was free the catheter was transected and the external portion of the catheter removed and discarded. The portion put put on gentle traction and the internal cuff identified. This was now dissected away from the surrounding tissues using cautery and blunt hemostat dissection. Once this was free the entire catheter was now removed and discarded. The wound was now inspected for hemostasis which was secured using cautery. The wound was now closed using interrupted vertical mattress sutures of 3-0 PDS. Dry gauze applied and the procedure concluded.
--- NOTE | 2016-09-22 13:35 | OPERATIVE REPORT E ---
Operative Report NAME: KIERAN LOVE : 1970 AGE: 45Y DATE OF SURGERY: 09/21/2016 ROOM: CORRECTION: OPERATIVE PROCEDURE: Insertion of transposed left radial artery-cephalic vein fistula. Please note this is a correction of the operation which reads: Needle access in the fistula, angioplasty, and angiogram and interpretation. The correct procedure is: Insertion of a transposed radial to cephalic fistula in the left forearm. DICTATING PHYSICIAN: ROME CHUN M.D. [id number] PHY#: [id number] ID: [id number] JOB#: [id number] ACCT: [id number] cc:ROME CHUN M.D. >
== END 2016-09-21 17:42 | disposition home or self-care (01) ==
LOC: OROUT 09:43
PROVIDERS: ATTEND Surgery
PROC: 0WPG03Z Removal of Infusion Device from Peritoneal Cavity, Open Approach (ICD-10-PCS; principal; 2016-09-21 12:00)
PROC: 057F3DZ Dilation of Left Cephalic Vein with Intraluminal Device, Percutaneous Approach (ICD-10-PCS; 2016-09-21 12:00)
DX: T82.858A Stenosis of other vascular prosthetic devices, implants and grafts, initial encounter (principal); Y83.2 Surgical operation with anastomosis, bypass or graft as the cause of abnormal reaction of the patient, or of later complication, without mention of misadventure at the time of the procedure; E11.22 Type 2 diabetes mellitus with diabetic chronic kidney disease; I12.0 Hypertensive chronic kidney disease with stage 5 chronic kidney disease or end stage renal disease; N18.6 End stage renal disease; Z99.2 Dependence on renal dialysis; F41.9 Anxiety disorder, unspecified; E66.9 Obesity, unspecified; Z88.0 Allergy status to penicillin; Z79.899 Other long term (current) drug therapy; Z79.01 Long term (current) use of anticoagulants; Z86.14 Personal history of Methicillin resistant Staphylococcus aureus infection; Z68.42 Body mass index [BMI] 45.0-49.9, adult
CPT/HCPCS: 93005; 36415 ×2; 82947; 84132; 85027; 80048; 71020; 93010; 49422; 37248; J2250; J3490 ×5; J3010; J1644; J2765; J2405; J3370; J2704; J0131; 1844

== ENCOUNTER 2016-10-22 08:10 | Day surgery (SDC) | payer MEDICARE, MEDICAID ==
[~2016-10-22 08:10] MED LIST changes: -BACITRACIN INJ 50,000 UNIT VIAL ONE; -BUPIVACAINE HCL 0.25 % INJ/PF (2.5 MG/1 ML) 30 ML VIAL ONE; -GLYCOPYRROLATE INJ 0.4 MG/2 ML VIAL ONE; -HEPARIN SOD (PORCINE) 1,000 UNIT/ML 10 ML VIAL ONE; -HEPARIN SODIUM,PORCINE/NS/PF 0 UNIT/0 ML RTUINJ IV ONE; +KETOROLAC TROMETHAMINE 0.45% 4 DROP/0.4 ML DROPERETTE OD PRN; -LIDOCAINE 0.5% INJ-PF (5 MG/ML) 50 ML SDV ONE; -LIDOCAINE 0.5% INJ-PF (5 MG/ML) 50 ML SDV SUBCUT PRN; -LIDOCAINE 1% INJ-PF (10 MG/ML) 30 ML SDV ONE; -LIDOCAINE 2% INJ-PF (20 MG/ML) 10 ML AMPUL ONE; -METOCLOPRAMIDE HCL INJ/PF 10 MG/2 ML SDV ONE; +MIDAZOLAM 2 MG/2 ML INJ ONE; -NORMAL SALINE 1000 ML (RENAL PATIENTS) IV PRN; -ONDANSETRON HCL INJ/PF 4 MG/2 ML SDV ONE; -VANCOMYCIN HCL 500 MG in DEXTROSE 5%-WATER 100 ML IV PRN
[2016-10-22] MEDS: TROPICAMIDE 1% OPH SOLN 3 ML OD PRN ×3 (08:37→08:58)
[2016-10-22] MEDS: TETRACAINE HCL 0.5% OPH SOLN 2 ML OD PRN ×3 (08:37→09:13)
[2016-10-22] MEDS: BESIFLOXACIN HCL 0.6% OPH SUSP 5 ML BOTTLE OD PRN ×4 (08:38→09:40)
[2016-10-22] MEDS: CYCLOPENTOLATE 0.2%/PHENYLEPHRINE 1% OPH SOLN 2 ML OD PRN ×3 (08:38→08:58)
[2016-10-22] MEDS ORDERED: EPINEPHRINE INJ/PF 1 MG/1 ML AMPULE ONE (08:48)
[2016-10-22] MEDS ORDERED: LIDOCAINE 1% INJ-PF (10 MG/ML) 30 ML SDV ONE (08:48)
[2016-10-22] MEDS ORDERED: CHONDR SU A NA/HYALUR INTRAOC KIT (SURGICARE) ONE (08:48)
[2016-10-22] MEDS ORDERED: TRYPAN BLUE 0.06 % OPH SOLN 0.5 ML DISP.SYRIN ONE (09:25)
[2016-10-22] MEDS ORDERED: CHONDR SU A NA/HYALUR SOD 0.5 ML DISP.SYRIN ONE (09:29)
[2016-10-22] MEDS ORDERED: MIDAZOLAM 2 MG/2 ML INJ ONE (09:47)
--- NOTE | 2016-10-23 07:23 | [facility] OPERATIVE REPORT E ---
[facility] Operative Report NAME: KIERAN LOVE AGE: 45Y DATE OF SURGERY: 10/22/2016 ROOM: PREOPERATIVE DIAGNOSIS: Cataract, dense cortical, of the right eye. POSTOPERATIVE DIAGNOSIS: Cataract, dense cortical, of the right eye. OPERATION: Complex cataract extraction with use of trypan blue dye due to dense cortical spoking. SURGEON: QUIN MCKEON M.D. ANESTHESIA: Topical. PROCEDURE: After obtaining appropriate consent, the patient's right eye was prepped and draped in sterile fashion as well as the surgeon in a sterile manner and cataract surgery was started. First a paracentesis blade was used to make a small side-port incision. Viscoelastic was used to inflate the anterior chamber. Next a 2.4 mm incision was made with the paracentesis blade. A continuous capsulorrhexis incision was made using a cystotome and Utrata forceps. Following this hydrodissection was carried out to make the lens fully loose and mobile and it was rotated 90 degrees. Following this, a yawwsj-vye-gtfokev technique was used to phacoemulsify the lens with a CDE of 4.54. The remaining cortex was removed with irrigation/aspiration. Provisc was instilled into the capsular bag to inflate the bag. A SN60WF, 12.0 diopter lens was placed. The remaining viscoelastic material was removed with irrigation/aspiration. Following this, a 10-0 nylon suture was used to close the incision and it was found to be watertight. Vigamox was instilled in the eye and a protective shield was placed over the eye. The patient returned to the postoperative recovery in stable condition. Prior to making the capsulorrhexis due to dense cortical spoking and poor visualization of the anterior capsule, trypan blue dye was used to stain the anterior capsule prior to instillation of viscoelastic. DICTATING PHYSICIAN: QUIN MCKEON M.D. [id number] PHY#: [id number] ID: [id number] JOB#: [id number] ACCT: [id number] cc:QUIN MCKEON M.D. >
--- NOTE | 2016-10-23 07:28 | [facility] DISCHARGE SUMMARY E ---
[facility] Discharge Summary NAME: KIERAN LOVE AGE: 45Y ADMITTED: 10/22/2016 DISCHARGED: 10/22/2016 HISTORY OF PRESENT ILLNESS: This is a 45-year-old male who underwent complex cataract extraction of the right eye requiring trypan blue dye. DIAGNOSIS: Cataract, right eye, with dense cortical spoking. HOSPITAL COURSE: He underwent surgery because he was having difficulty making out facial features and difficulty seeing road signs from his right eye. DISCHARGE INSTRUCTIONS: 1. He should be on a regular diet. 2. No bending at the waist. 3. No heavy lifting. 4. He is to use Besivance, Ilevro, and Durezol at 3 p.m. and 8 p.m. and sleep with a rigid shield. 5. I will see him for his one-day postoperative tomorrow. DICTATING PHYSICIAN: QUIN MCKEON M.D. [id number] PHY#: [id number] ID: [id number] JOB#: [id number] ACCT: [id number] cc:QUIN MCKEON M.D. >
== END 2016-10-22 10:32 | disposition home or self-care (01) ==
LOC: SC 08:10
PROVIDERS: ATTEND Internal Medicine
PROC: 08RJ3JZ Replacement of Right Lens with Synthetic Substitute, Percutaneous Approach (ICD-10-PCS; principal; 2016-10-22 09:30)
DX: H25.89 Other age-related cataract (principal); H25.12 Age-related nuclear cataract, left eye; E11.22 Type 2 diabetes mellitus with diabetic chronic kidney disease; I12.9 Hypertensive chronic kidney disease with stage 1 through stage 4 chronic kidney disease, or unspecified chronic kidney disease; N18.9 Chronic kidney disease, unspecified; Z79.899 Other long term (current) drug therapy; Z88.0 Allergy status to penicillin
CPT/HCPCS: 66982; 82962; V2632; J2250; J3490 ×4; A9270; J0171; 142

== ENCOUNTER 2016-12-14 08:03 | Day surgery (SDC) | payer MEDICARE, MEDICAID ==
[2016-12-14] MEDS ORDERED: FENTANYL CITRATE INJ/PF 100 MCG/2 ML AMPUL ONE (09:58)
[2016-12-14] MEDS ORDERED: MIDAZOLAM 2 MG/2 ML INJ ONE (09:58)
[2016-12-14] MEDS ORDERED: HEPARIN SOD (PORCINE) 5,000 UNIT/ML 1 ML SYRINGE ONE (09:58)
[2016-12-14] MEDS ORDERED: LIDOCAINE 0.5% INJ-PF (5 MG/ML) 50 ML SDV ONE ×2 (09:59→12:16)
[2016-12-14] MEDS ORDERED: DIAZEPAM 5 MG TABLET ONE (10:13)
[2016-12-14] MEDS ORDERED: OXYCODONE-ACETAMINOPHEN 5-325 MG TABLET ONE (10:13)
[2016-12-14 10:36] LABS: HEMATOCRIT 34.9 % (37.9-51.0); HEMOGLOBIN 11.2 g/dL (13.5-17.0); HGB HCT DIFFERENCE -1.3; MEAN CORPUSCULAR HEMOGLOBIN 29.6 pg (27.0-33.4); MEAN CORPUSCULAR HGB CONC 32.1 g/dL (32.0-36.0); MEAN CORPUSCULAR VOLUME 92 fl (80-97); RED BLOOD COUNT 3.79 10^6/uL (4.35-5.55); RED CELL DISTRIBUTION WIDTH 15.2 % (11.5-14.0); WHITE BLOOD COUNT 8.9 10^3/uL (4.0-10.5)
--- NOTE | 2016-12-14 13:21 | PDOC DISCHARGE SUMMARY ---
Discharge Summary (SDC) - Discharge Final Diagnosis: #1 malfunctioning AV fistula, left radiocephalic. 2. End-stage renal disease on hemodialysis. 3. Hypertension Date of Surgery: 12/14/16 Discharge Date: 12/14/16 Condition: Good Treatment or Instructions: Discharge home [after recovery per ASU criteria]. Diet , [renal],as tolerated, when fully awake advance as tolerated. Activities within moderation encouraged. Follow up in my office by appointment in about [2 weeks]. Call for appointment. Leave wounds [covered], [keep clean and dry, until hemodialysis. Hold of on school/work [until evaluation in office]. May shower [in 48 hrs], [try to keep operated area as dry as possible]. Discharge Diet: Other (Comments) - Renal Respiratory Treatments at Home: Deep Breathing/Coughing Discharge Activity: Activity As Tolerated Report the Following to Your Physician Immediately: Shortness of Breath, Unusual Bleeding
[2016-12-14 14:13] VITALS: BP 147/82
--- NOTE | 2016-12-14 15:24 | Operative Report ---
Operative Report DATE OF SURGERY: 12/14/16 PREOPERATIVE DIAGNOSIS: #1 malfunctioning AV fistula, left radiocephalic. 2. End-stage renal disease on hemodialysis. 3. Hypertension POSTOPERATIVE DIAGNOSIS: #1 malfunctioning AV fistula, left radiocephalic. Post angioplasty. 2. End-stage renal disease on hemodialysis. 3. Hypertension OPERATION: 1. Needle access and arteriovenous fistula left radiocephalic. Using real-time ultrasound guidance. 2. Angioplasty. 3. Angiogram and interpretation. SURGEON: ROME PRATT CALENDER SUPERVISOR: None ANESTHESIA: Moderate Sedation TISSUE REMOVED OR ALTERED: Not applicable COMPLICATIONS: None ESTIMATED BLOOD LOSS: 5 mL. INTRAOPERATIVE FINDINGS: Of a well founded left forearm arteriovenous fistula, radiocephalic. Somewhat deeply placed using 5 cm 5 mm beneath the skin is somewhat difficult to feel. Weak pulsation. Much improved after angioplasty. Excellent inflow noted on angiogram with wide open anastomosis. The stone stenosis appreciated 70% of the adjacent lumen, about 4 cm away from the anastomosis. This was eradicated by angioplasty. It was well seen with a waist and waist eliminated. Dilatation was done in the midportion of the fistula in order to enlarge it from a measured 5.8 mm up to 7 mm by angioplasty. PROCEDURE: PROCEDURE: After verifying the procedure and having obtained informed consent, the patient's left arm and forearm were prepared with Chlorhexidine and draped out with sterile linen. Local anesthesia infiltrated. Percutaneous access into the fistula ,[retrograde], obtained about [20 cm] from the arteriovenous anastomosis using a micro puncture needle followed by micro puncture wire and then a micro puncture catheter. This was done on ultrasound guidance using real-time access into the vein. Ultrasound was also used to size the vein. Angiogram demonstrated the aforementioned findings. Angioplasty was elected. A 0.035 [place] wire was inserted, and over this, a 6 [place] short introducer was placed, this was followed by a [5 mm ] angioplasty balloon . Angioplasty was now done at the perianastomotic segment. This was done very carefully and in the up to 10 braden sustained for 2 minutes. Angiogram demonstrated successful outcome. The balloon was now swapped over the wire for a 7 mm angioplasty balloon. Angioplasty was In the mid forearm portion of the fistula. Inflating up to 10 atmospheres for 2 minutes]. Completion angiogram demonstrated [satisfactory result]. The instrumentation was now withdrawn over and pressure for 10 minutes Exposure time: 0.9 minutes Radiation: 1.34 mcg/cm Contrast: 25 mL of Isovue-M 300 low osmolality. DICTATING PHYSICIAN: ROME CHUN M.D. cc: ROME CHUN M.D. ([id number]) >>
--- NOTE | 2016-12-14 16:28 | RADIOLOGY REPORT (SQ) ---
EXAM DESCRIPTION: FISTULAGRAM W/PLASTY COMPLETED DATE/TIME: 12/14/2016 1:28 pm REASON FOR STUDY: T82.858A COMPARISON: None. FLUOROSCOPY TIME: 2.2 minutes 7 series of angiographic Images saved to PACS LIMITATIONS: None. PROCEDURE: Intra procedural imaging and fluoro for Dr. Alva FINDINGS: Intra procedural imaging and fluoro for Dr. Alva IMPRESSION: Intra procedural imaging and fluoro for Dr. Alva COMMENT: PQRS [id number]: Fluoroscopy time of the procedure is documented in the report. TECHNICAL DOCUMENTATION: JOB ID: [id number] [email or web address]- All Rights Reserved
== END 2016-12-14 14:04 | disposition home or self-care (01) ==
LOC: SC 08:03
PROVIDERS: ATTEND Surgery
PROC: 057F3DZ Dilation of Left Cephalic Vein with Intraluminal Device, Percutaneous Approach (ICD-10-PCS; principal; 2016-12-14)
DX: T82.858A Stenosis of other vascular prosthetic devices, implants and grafts, initial encounter (principal); Y83.2 Surgical operation with anastomosis, bypass or graft as the cause of abnormal reaction of the patient, or of later complication, without mention of misadventure at the time of the procedure; I12.0 Hypertensive chronic kidney disease with stage 5 chronic kidney disease or end stage renal disease; E11.22 Type 2 diabetes mellitus with diabetic chronic kidney disease; N18.6 End stage renal disease; Z99.2 Dependence on renal dialysis; Z88.0 Allergy status to penicillin; Z79.899 Other long term (current) drug therapy
CPT/HCPCS: 36415; 85027; 36902; 76937; C1725 ×2; Q9967; C1769; J2250; J1644 ×2; A9270 ×2; J3010; J3490

== ENCOUNTER → 2018-09-12 | Outpatient (CLI) | payer MEDICARE, MEDICAID ==
--- NOTE | 2018-09-12 17:11 | RADIOLOGY REPORT (SQ) ---
EXAM DESCRIPTION: VENOUS UNILATERAL UPPER COMPLETED DATE/TIME: 09/12/2018 3:56 pm REASON FOR STUDY: LUE PAIN/SWELLING R22.32 LOCALIZED SWELLING, MASS AND LUMP, LEFT UPPER LIMB COMPARISON: None. TECHNIQUE: Dynamic and static shrestha scale and color images acquired of the left arm venous system. Se lected spectral images acquired with additional compression and augmentation maneuvers. The contralat eral subclavian vein and internal jugular vein were also imaged. Images stored on PACS. LIMITATIONS: None. FINDINGS: INTERNAL JUGULAR VEIN: Normal phasicity, compression, augmentation. No visualized echogeni c material on shrestha scale. No defects on color images. Comparison opposite side normal. SUBCLAVIAN VEIN: Normal compression, augmentation. No visualized echogenic material on shrestha scale. No defects on color images. AXILLARY VEIN: Normal compression, augmentation. No visualized echogenic material on shrestha scale. No d efects on color images. BRACHIAL VEIN: Normal compression, augmentation. No visualized echogenic material on shrestha scale. No d efects on color images. BASILIC VEIN: Normal compression, augmentation. No visualized echogenic material on shrestha scale. No de fects on color images. CEPHALIC VEIN: Normal compression, augmentation. No visualized echogenic material on shrestha scale. No d efects on color images. OTHER: Patent AV fistula at the wrist. CONTRALATERAL SUBCLAVIAN VEIN AND INTERNAL JUGULAR VEIN: Normal phasicity, compression and augmentation. No visualized echogenic material on shrestha scale. No de fects on color images. IMPRESSION: NO EVIDENCE DVT OR SVT IN THE LEFT ARM. TECHNICAL DOCUMENTATION: JOB ID: [id number] [employer]- All Rights Reserved Reading location - IP/workstation name: [email or web address]
== END ==
LOC: SP 14:27
PROVIDERS: ATTEND Internal Medicine Nephrology
DX: R22.32 Localized swelling, mass and lump, left upper limb (principal)
CPT/HCPCS: 93971

== ENCOUNTER 2019-04-13 08:59 | Day surgery (SDC) | payer MEDICARE, MEDICAID ==
[~2019-04-13 08:59] MED LIST changes: +CHONDR SU A NA/HYALUR INTRAOC KIT (SURGICARE) ONE; +DORZOLAMIDE HCL 2%/TIMOLOL MALEAT 0.5% OPH SOLN 10 ML OS PRN; +EPINEPHRINE INJ/PF 1 MG/1 ML AMPULE ONE; -KETOROLAC TROMETHAMINE 0.45% 4 DROP/0.4 ML DROPERETTE OD PRN; +KETOROLAC TROMETHAMINE 0.45% 4 DROP/0.4 ML DROPERETTE OS PRN; +LIDOCAINE 1%/PHENYLEPHRINE 1.5% 1 ML VIAL ONE; -MIDAZOLAM 2 MG/2 ML INJ ONE; +TRYPAN BLUE 0.06 % OPH SOLN 0.5 ML DISP.SYRIN ONE
[2019-04-13] MEDS ORDERED: FENTANYL CITRATE INJ/PF 100 MCG/2 ML AMPUL ONE (09:33)
[2019-04-13] MEDS ORDERED: MIDAZOLAM 2 MG/2 ML INJ ONE (09:33)
[2019-04-13] MEDS ORDERED: ONDANSETRON HCL INJ/PF 4 MG/2 ML SDV ONE (09:33)
[2019-04-13] MEDS: TETRACAINE HCL 0.5% OPH SOLN 4 ML OS PRN ×3 (10:00→10:35)
[2019-04-13] MEDS: TROPICAMIDE 1% OPH SOLN 15 ML OS PRN ×3 (10:00→10:20)
[2019-04-13] MEDS: CYCLOPENTOLATE 0.2%/PHENYLEPHRINE 1% OPH SOLN 2 ML OS PRN ×3 (10:00→10:20)
[2019-04-13] MEDS: BESIFLOXACIN HCL 0.6% OPH SUSP 5 ML BOTTLE OS PRN ×3 (10:00→10:58)
--- NOTE | 2019-04-14 07:56 | Operative Report ---
Operative Report-[facility] Operative Report: DATE OF SURGERY: 04/13/2019 PREOPERATIVE DIAGNOSIS: Cataracts, left eye POSTOPERATIVE DIAGNOSIS: Cataract, left eye OPERATION: Cataract extraction with insertion of an IOL of the left eye. Intraocular Lens Model: [10.0 sn60wf] Reason for surgery was difficulty seeing road signs SURGEON: Gomez Helton MD ANESTHESIA: Topical PROCEDURE: After obtaining appropriate consent, the patient's left eye was prepped and draped in a sterile fashion as well as the surgeon in the sterile manner and cataract surgery was started. First a paracentesis blade was used to make a side-port incision. Viscoelastic was used to inflate the anterior chamber. Next a 2.4 mm incision was made with a 2.4 mm blade, clear corneal temporarily. A continuous capsulorrhexis was made using a cystotome and Utrata forceps. Following this hydrodissection was carried out to make commands fully loose and mobile and it was rotated 90 degrees. Following this, a divide and conquer technique was used to phacoemulsify the lens. The remaining cortex was removed with an irrigation/aspiration. Provisc was instilled into the capsular b ag to inflate the bag.The intracular lens was placed. The remaining viscoelastic material was removed with irrigation/aspiration. Following this, the incision was found to be watertight. Besivance and Cosopt was instilled into the eye and a protective shield was placed over the eye. The patient was turned to the postoperative recovery in a stable condition.
== END 2019-04-13 11:40 | disposition home or self-care (01) ==
LOC: SC 08:59
PROVIDERS: ATTEND Internal Medicine
DX: H25.89 Other age-related cataract (principal); H33.312 Horseshoe tear of retina without detachment, left eye; I12.0 Hypertensive chronic kidney disease with stage 5 chronic kidney disease or end stage renal disease; E11.22 Type 2 diabetes mellitus with diabetic chronic kidney disease; N18.5 Chronic kidney disease, stage 5; Z99.2 Dependence on renal dialysis; E66.01 Morbid (severe) obesity due to excess calories
CPT/HCPCS: 66984; 82962; J2250; J3490 ×2; A9270; J0171; J3010; J2405; J2370; 142

== ENCOUNTER 2019-05-01 12:08 | Observation (INO) | payer MEDICARE, MEDICAID ==
--- NOTE | 2019-05-01 12:43 | ER Document Report ---
ED Medical Screen (RME) - General Chief Complaint: Shortness Of Breath Stated Complaint: SHORTNESS OF BREATH Time Seen by Provider: 05/01/19 12:37 Primary Care Provider: Jaime OLMOS MD [Primary Care Provider] - Follow up as needed Notes: Patient is a 48-year-old male with a history of hypertension, hemodialysis with end-stage renal failure who presents to the emergency department with a chief complaint of shortness of breath. Patient reports he noted some shortness of breath last night but worse this morning. Patient reports shortness of breath is worse when he ambulates. Patient reports chest pain with ambulation as well. Patient denies fever. Patient reports he feels like he has a dry cough due to the humidity in the air. Patient denies nausea, vomiting or diarrhea. Patient reports he is a Wednesday, , Wednesday dialysis patient which she did receive his full treatment on Wednesday. TRAVEL OUTSIDE OF THE [place] IN LAST 30 DAYS: No - Related Data Allergies/Adverse Reactions: Penicillins Adverse Reaction (Verified 05/01/19 12:25) Home Medications: Hydralazine. Nifedipine. furosemide. Calcitrol Past Medical History - Social History Chew tobacco use (# tins/day): No Frequency of alcohol use: None Drug Abuse: None - Past Medical History Cardiac Medical History: Reports: Hx Hypertension Denies: Hx Atrial Fibrillation, Hx Congestive Heart Failure, Hx Coronary Artery Disease, Hx Heart Attack Pulmonary Medical History: Reports: Hx Asthma - CHILD Denies: Hx Bronchitis, Hx COPD, Hx Pneumonia Neurological Medical History: Denies: Hx Cerebrovascular Accident, Hx Seizures Endocrine Medical History: Reports: Hx Diabetes Mellitus Type 2 - "diet-controlled" GI Medical History: Denies: Hx Hepatitis, Hx Hiatal Hernia, Hx Ulcer Musculoskeltal Medical History: Denies Hx Arthritis Infectious Medical History: Denies: Hx Hepatitis Past Surgical History: Reports: Hx Orthopedic Surgery - fx L forearm, Hx Tonsillectomy - adnoids. Denies: Hx Open Heart Surgery, Hx Pacemaker - Immunizations Immunizations up to date: Yes Hx Diphtheria, Pertussis, Tetanus Vaccination: No Physical Exam - Vital signs Vitals: Temp Pulse Resp BP Pulse Ox 98.1 F 96 24 H 202/74 H 93 05/01/19 12:15 05/01/19 12:15 05/01/19 12:15 05/01/19 12:15 12/02/19 12:15 - Respiratory Respiratory status: No respiratory distress Chest status: Nontender Breath sounds: Normal Chest palpation: Normal Course - Re-evaluation Re-evalutation: 05/01/19 12:43 I have greeted and performed a rapid initial assessment of this patient. A comprehensive ED assessment and evaluation of the patient, analysis of test results and completion of the medical decision making process will be conducted by additional ED providers. - Vital Signs Vital signs: Temp Pulse Resp BP Pulse Ox 98.1 F 96 24 H 202/74 H 93 05/01/19 12:15 05/01/19 12:15 05/01/19 12:15 05/01/19 12:15 05/01/19 12:15 Doctor's Discharge - Discharge Referrals: Jaime OLMOS MD [Primary Care Provider] - Follow up as needed
[2019-05-01 13:33] LABS: ABSOLUTE BASOPHILS # (AUTO) 0.1 10^3/uL (0.0-0.2); ABSOLUTE EOSINOPHILS # (AUTO) 0.1 10^3/uL (0.0-0.6); ABSOLUTE LYMPHOCYTES (AUTO) 0.9 10^3/uL (0.5-4.7); ABSOLUTE MONOCYTES (AUTO) 0.5 10^3/uL (0.1-1.4); ABSOLUTE NEUT (AUTO) 6.4 10^3/uL (1.7-8.2); BASOPHILS % (AUTO) 0.8 % (0-2); EOSINOPHILS % (AUTO) 1.8 % (0-6); HEMATOCRIT 26.4 % (37.9-51.0); HEMOGLOBIN 8.8 g/dL (13.5-17.0); MEAN CORPUSCULAR HEMOGLOBIN 32.1 pg (27.0-33.4); MEAN CORPUSCULAR HGB CONC 33.3 g/dL (32.0-36.0); MEAN CORPUSCULAR VOLUME 97 fl (80-97); MONOCYTES % (AUTO) 6.3 % (3-13); PLATELET COUNT 187 10^3/uL (150-450); RED BLOOD COUNT 2.74 10^6/uL (4.35-5.55); RED CELL DISTRIBUTION WIDTH 14.4 % (11.5-14.0); SEGMENTED NEUTROPHILS % (AUTO) 80.1 % (42-78); TOTAL CELLS COUNTED % (AUTO) 100 %
[2019-05-01 14:04] LABS: ALKALINE PHOSPHATASE 103 U/L (38-126); ANION GAP 15 (5-19); ASPARTATE AMINO TRANSFERASE 19 U/L (17-59); BILIRUBIN,DIRECT 0.5 mg/dL (0.0-0.4); BILIRUBIN,TOTAL 0.6 mg/dL (0.2-1.3); BLOOD UREA NITROGEN 84 mg/dL (7-20); CALCIUM 9.2 mg/dL (8.4-10.2); CARBON DIOXIDE 23 mmol/L (22-30); CHLORIDE 100 mmol/L (98-107); GLUCOSE 213 mg/dL (75-110); POTASSIUM 5.1 mmol/L (3.6-5.0); TOTAL PROTEIN 6.8 g/dL (6.3-8.2)
--- NOTE | 2019-05-01 14:30 | RADIOLOGY REPORT (SQ) ---
EXAM DESCRIPTION: CHEST 2 VIEWS COMPLETED DATE/TIME: 05/01/2019 2:12 pm REASON FOR STUDY: shortness of breath COMPARISON: 06/11/2016 EXAM PARAMETERS: NUMBER OF VIEWS: two views TECHNIQUE: Digital Frontal and Lateral radiographic views of the chest acquired. RADIATION DOSE: NA LIMITATIONS: none FINDINGS: LUNGS AND PLEURA: Mild pulmonary edema. MEDIASTINUM AND HILAR STRUCTURES: No masses or contour abnormalities. HEART AND VASCULAR STRUCTURES: Cardiomegaly. Mild pulmonary edema. BONES: No acute findings. HARDWARE: None in the chest. OTHER: No other significant finding. IMPRESSION: Cardiomegaly with mild pulmonary edema. TECHNICAL DOCUMENTATION: JOB ID: [id number] [employer]- All Rights Reserved Reading location - IP/workstation name: [email or web address]
--- NOTE | 2019-05-01 14:34 | ER Document Report ---
Entered by KALEB FRITZ SCRIBE 05/01/19 [id number] Acting as scribe for:HERBER WHITE DO ED General - General Chief Complaint: Shortness Of Breath Stated Complaint: SHORTNESS OF BREATH Time Seen by Provider: 05/01/19 12:37 Primary Care Provider: Jaime CROSS MD [ACTIVE STAFF] - Follow up as needed Mode of Arrival: Wheelchair Information source: Patient Notes: This 48-year-old male patient presents to the emergency department today with complaints of shortness of breath. Patient has end stage renal disease and was last dialyzed on 04/29/2019. Patient states his shortness of breath seems to get worse if he goes outside in the cold air. Patient states his is very similar to how he felt a couple weeks ago when he "had fluid on his lungs". Patient denies fevers or chest pain. Pertinent PMHx/PSHx: End-stage renal disease - additional PMHx/PSHx not pertinent to this visit as recorded. Oiler Bander: Naseem Cross TRAVEL OUTSIDE OF THE [place] IN LAST 30 DAYS: No - Related Data Allergies/Adverse Reactions: Penicillins Adverse Reaction (Verified 05/01/19 12:25) Home Medications: Hydralazine. Nifedipine. furosemide. Calcitrol Past Medical History - General Information source: Patient - Social History Smoking Status: Never Smoker Cigarette use (# per day): No Chew tobacco use (# tins/day): No Frequency of alcohol use: None Drug Abuse: None Lives with: Family Family History: Reviewed & Not Pertinent Patient has suicidal ideation: No Patient has homicidal ideation: No - Past Medical History Cardiac Medical History: Reports: Hx Hypertension Pulmonary Medical History: Reports: Hx Asthma - CHILD Endocrine Medical History: Reports: Hx Diabetes Mellitus Type 2 - "diet- controlled" Renal/ Medical History: Reports: Hx End Stage Renal Disease Past Surgical History: Reports: Hx Orthopedic Surgery - fx L forearm, Hx Tonsillectomy - adnoids - Immunizations Immunizations up to date: Yes Hx Diphtheria, Pertussis, Tetanus Vaccination: No Hx Pneumococcal Vaccination: 04/07/12 Review of Systems - Review of Systems Constitutional: denies: Fever EENT: No symptoms reported Cardiovascular: denies: Chest pain Respiratory: See HPI, Short of breath Gastrointestinal: No symptoms reported Genitourinary: No symptoms reported Male Genitourinary: No symptoms reported Musculoskeletal: No symptoms reported Skin: No symptoms reported Hematologic/Lymphatic: No symptoms reported Neurological/Psychological: No symptoms reported -: Yes All other systems reviewed and negative Physical Exam - Vital signs Vitals: Temp Pulse Resp BP Pulse Ox 98.1 F 96 24 H 202/74 H 93 05/01/19 12:15 05/01/19 12:15 05/01/19 12:15 05/01/19 12:15 05/01/19 12:15 Interpretation: Hypertensive - General General appearance: Appears well, Alert - HEENT Head: Normocephalic, Atraumatic Eyes: Normal Pupils: PERRL - Respiratory Respiratory status: No respiratory distress Chest status: Nontender Breath sounds: Decreased air movement - at basese b/l Chest palpation: Normal - Cardiovascular Rhythm: Regular Heart sounds: Normal auscultation Murmur: No - Abdominal Inspection: Normal Distension: No distension Bowel sounds: Normal Tenderness: Nontender Organomegaly: No organomegaly - Back Back: Normal, Nontender - Extremities General upper extremity: Normal inspection, Nontender, Normal color, Normal ROM, Normal temperature General lower extremity: Normal inspection, Nontender, Normal color, Normal ROM, Normal temperature, Normal weight bearing. No: Estrada's sign - Neurological Neuro grossly intact: Yes Cognition: Normal Orientation: AAOx4 Lima Coma Scale Eye Opening: Spontaneous [place] Coma Scale Verbal: Oriented Ambler Coma Scale Motor: Obeys Commands Lima Coma Scale Total: 15 Speech: Normal Motor strength normal: LUE, RUE, LLE, RLE Sensory: Normal - Psychological Associated symptoms: Normal affect, Normal mood - Skin Skin Temperature: Warm Skin Moisture: Dry Skin Color: Normal Course - Re-evaluation Re-evalutation: 05/01/19 13:56 Dr. Tay pennington. 05/01/19 14:[address] Cross. Will discuss with the nephrology team and likely get patient dialyzed today. Asked to admit to obs status. 05/01/19 14:[address] Kiran. Please discuss with Jordan Day. 05/01/19 14:30 Discussed with Jordan. Patient will be admitted to observation status. Patient is going to dialysis on the fourth floor currently. Patient is a 48-year-old male who has end-stage kidney disease and has dialysis Wednesday. Patient had his full dialysis on Wednesday. Had some dyspnea today. Patient is hypertensive with fluid overload and a potassium of 5.1. No cough or wheezing. No fever. No chest pain. This seems to be fluid overload related to chronic kidney disease and patient will be dialyzed today with Dr. Cross, and then be kept for observation. He is agreeable to this plan. There are dialysis beds available and the patient is stable to go to dialysis and is on his way there at this time. - Vital Signs Vital signs: Temp Pulse Resp BP Pulse Ox 98.1 F 96 24 H 202/74 H 93 05/01/19 12:15 05/01/19 12:15 05/01/19 12:15 05/01/19 12:15 05/01/19 12:15 - Laboratory Result Diagrams: 05/01/19 13:14 05/01/19 13:14 Laboratory results interpreted by me: 05/01/19 05/01/19 13:14 13:14 RBC 2.74 L Hgb 8.8 L Hct 26.4 L RDW 14.4 H Lymph % (Auto) 11.0 L Seg Neutrophils % 80.1 H Potassium 5.1 H BUN 84 H Creatinine 11.86 H Est GFR ( Amer) 6 L Est GFR (MDRD) Non-Af 5 L Glucose 213 H Direct Bilirubin 0.5 H Discharge - Discharge Clinical Impression: CKD (chronic kidney disease) stage V requiring chronic dialysis CHF (congestive heart failure) Qualifiers: Heart failure type: unspecified Heart failure chronicity: acute Qualified Code(s): I50.9 - Heart failure, unspecified Pulmonary edema Qualifiers: Chronicity: acute Qualified Code(s): J81.0 - Acute pulmonary edema Condition: Stable Disposition: ADMITTED OBSERVATION Admitting Provider: Qiana (Hospitalist) - Day admtting Unit Admitted: Medical Floor I personally performed the services described in the documentation, reviewed and edited the documentation which was dictated to the scribe in my presence, and it accurately records my words and actions.
--- NOTE | 2019-05-01 15:05 | EKG REPORT ---
SEVERITY:- ABNORMAL ECG - SINUS RHYTHM LEFT ATRIAL ABNORMALITY CONSIDER ANTEROSEPTAL INFARCT : Confirmed by: Diana Mosley MD 01-May-2019 15:04:13
[2019-05-01] MEDS ORDERED: ACETAMINOPHEN 325 MG TABLET PO PRN (15:14)
[2019-05-01] MEDS ORDERED: ONDANSETRON HCL INJ/PF 4 MG/2 ML SDV IV PRN (15:14)
[2019-05-01] MEDS ORDERED: ONDANSETRON 4 MG TAB.RAPDIS PO PRN (15:14)
--- NOTE | 2019-05-01 15:14 | PDOC H&P ---
History of Present Illness Admission Date/PCP: 05/01/19 14:42 JORDAN ROTHMAN MD History of Present Illness: KIERAN LOVE is a 48 year old male who is been on hemodialysis now for 3 years. Patient was here at the hospital today get an ultrasound of his kidneys when he was walking back to the parking lot and got short of breath. He went to the emergency room to be evaluated.. She normally has dialysis on Wednesday and Wednesday but he was told he needed dialysis today. We were asked to put the patient in observation status following dialysis.. Past Medical History Cardiac Medical History: Reports: Hypertension Denies: Atrial Fibrillation, Congestive Heart Failure, Coronary Artery Disease, Myocardial Infarction Pulmonary Medical History: Reports: Asthma - CHILD Denies: Bronchitis, Chronic Obstructive Pulmonary Disease (COPD), Pneumonia Neurological Medical History: Denies: Seizures Endocrine Medical History: Reports: Diabetes Mellitus Type 2 - "diet-controlled" Renal/ Medical History: Reports: End Stage Renal Disease GI Medical History: Denies: Hepatitis, Hiatal Hernia Musculoskeltal Medical History: Denies: Arthritis Hematology: Reports: Anemia Denies: Sickle Cell Disease Past Surgical History Past Surgical History: Reports: Orthopedic Surgery - fx L forearm, Tonsillectomy - adnoids Denies: Pacemaker Social History Lives with: Family Smoking Status: Never Smoker Electronic Cigarette use?: No Frequency of Alcohol Use: None Hx Recreational Drug Use: No Hx Prescription Drug Abuse: No - Advance Directive Resuscitation Status: Full Code Family History Family History: Reviewed & Not Pertinent Parental Family History Reviewed: No Children Family History Reviewed: No Sibling(s) Family History Reviewed.: No Medication/Allergy Home Medications: Nifedipine [Procardia XL 30 mg Tablet] 90 mg PO BID 09/18/16 Allopurinol [Zyloprim 100 mg Tablet] 100 mg PO DAILY 04/10/19 Calcitriol [Rocaltrol 0.25 Mcg Capsule] 1 cap PO DAILY 04/10/19 Furosemide [Lasix] 40 mg PO DAILY 04/10/19 Hydralazine HCl [Apresoline 50 mg Tablet] 2 tab PO TID 04/10/19 Folic Acid/Vitamin B Comp W-C [Daisy-Aury Tablet] 0.8 mg PO DAILY 04/12/19 Allergies/Adverse Reactions: Penicillins Adverse Reaction (Verified 05/01/19 12:25) Review of Systems Constitutional: ABSENT: chills, fever(s), headache(s), weight gain, weight loss Cardiovascular: ABSENT: chest pain, dyspnea on exertion, edema, orthropnea, palpitations Respiratory: PRESENT: dyspnea, other - On exertion Neurological: ABSENT: abnormal gait, abnormal speech, confusion, dizziness, focal weakness, syncope Psychiatric: ABSENT: anxiety, depression, homidical ideation, suicidal ideation Physical Exam Vital Signs: Temp Pulse Resp BP Pulse Ox 98.1 F 96 24 H 202/74 H 93 05/01/19 12:15 05/01/19 12:15 05/01/19 12:15 05/01/19 12:15 05/01/19 12:15 Intake & Output 04/30/19 05/01/19 05/02/19 06:59 06:59 06:59 Weight 175.1 kg General appearance: PRESENT: no acute distress, other - She was seen in dialysis Respiratory exam: PRESENT: clear to auscultation german, decreased breath sounds. ABSENT: rales, rhonchi, wheezes Cardiovascular exam: PRESENT: RRR. ABSENT: diastolic murmur, rubs, systolic murmur Neurological exam: PRESENT: alert, awake, oriented to person, oriented to place, oriented to time, oriented to situation, CN II-XII grossly intact. ABSENT: motor sensory deficit Psychiatric exam: PRESENT: appropriate affect, normal mood. ABSENT: homicidal ideation, suicidal ideation Results Laboratory Results: 05/01/19 13:14 05/01/19 13:14 05/01/19 05/01/19 13:14 13:14 WBC 8.0 RBC 2.74 L Hgb 8.8 L Hct 26.4 L MCV 97 MCH 32.1 MCHC 33.3 RDW 14.4 H Plt Count 187 Seg Neutrophils % 80.1 H Sodium 138.1 Potassium 5.1 H Chloride 100 Carbon Dioxide 23 Anion Gap 15 BUN 84 H Creatinine 11.86 H Est GFR ( Amer) 6 L Glucose 213 H Calcium 9.2 Total Bilirubin 0.6 AST 19 Alkaline Phosphatase 103 Total Protein 6.8 Albumin 4.0 05/01/19 13:14 Troponin I 0.031 Impressions: Chest X-Ray 05/01/19 12:41 IMPRESSION: Cardiomegaly with mild pulmonary edema. Assessment and Plan - Diagnosis (1) CHF (congestive heart failure) Qualifiers: Heart failure type: unspecified Heart failure chronicity: acute Qualified Code(s): I50.9 - Heart failure, unspecified Is this a current diagnosis for this admission?: Yes (2) CKD (chronic kidney disease) stage V requiring chronic dialysis Is this a current diagnosis for this admission?: Yes (3) Hypertension Is this a current diagnosis for this admission?: Yes - Plan Summary Summary: Patient will be admitted today for dialysis, then placed in observation status. Patient is relatively healthy for dialysis patient on very few medications. - Time Time Spent with patient: 35 or more minutes
[2019-05-01] MEDS ORDERED: EPOETIN ALFA-EPBX 2,000 UNIT, EPOETIN ALFA-EPBX 3,000 UNIT, EPOETIN ALFA-EPBX 20,000 UN... IV PRN ×4 (15:48)
--- NOTE | 2019-05-01 15:56 | PDOC CONSULTATION ---
Consultation Consult Date: 05/01/19 Provider Consulted: Jaime OLMOS Consult reason:: ESRD for dialysis in the setting of acute heart failure. History of Present Illness Admission Date/PCP: 05/01/19 14:42 JORDAN ROTHMAN MD History of Present Illness: KIERAN LOVE is a 48 year old male Past history of hypertension, polycystic kidney disease and ESRD on hemodialysis with unfortunate noncompliance with diet and fluids and medications admitted with history of progressive shortness of breath. Seen in the ER with active exertional shortness of breath but no history of any chest pains or orthopnea. Admits to indiscretions with diet. As usually he is fluid overloaded because he has no limitations on his fluid intake. He usually is about 6 to 7 kg of fluid in between treatments especially over the weekends unfortunately in spite of repeated advises against it.Radiologically evaluations confirm that he is in heart failure. Is currently being seen while undergoing dialysis. Past Medical History Cardiac Medical History: Reports: Hypertension-primary Denies: Atrial Fibrillation, Coronary Artery Disease, Myocardial Infarction Pulmonary Medical History: Reports: Asthma - CHILD Denies: Bronchitis, Chronic Obstructive Pulmonary Disease (COPD), Pneumonia Neurological Medical History: Denies: Seizures Endocrine Medical History: Reports: Diabetes Mellitus Type 2 - "diet-controlled" Renal/ Medical History: Reports: End Stage Renal Disease, Secondary Hyperparathyroidism GI Medical History: Denies: Hepatitis, Hiatal Hernia Musculoskeltal Medical History: Denies: Arthritis Hematology Medical History: Reports Anemia of Chronic Kidney Disease Past Surgical History Past Surgical History: Reports: Orthopedic Surgery - fx L forearm, Tonsillectomy - adnoids Denies: Pacemaker Social History Lives with: Family Smoking Status: Never Smoker Electronic Cigarette use?: No Frequency of Alcohol Use: None Hx Recreational Drug Use: No Hx Prescription Drug Abuse: No - Advance Directive Resuscitation Status: Full Code Family History Parental Family History Reviewed: Yes - Negative for ESRD Children Family History Reviewed: No Sibling(s) Family History Reviewed.: No Medication/Allergy Home Medications: Nifedipine [Procardia XL 30 mg Tablet] 90 mg PO Q12 09/18/16 Allopurinol [Zyloprim 100 mg Tablet] 100 mg PO DAILY 04/10/19 Hydralazine HCl [Apresoline 50 mg Tablet] 100 mg PO Q8 04/10/19 Folic Acid/Vitamin B Comp W-C [Daisy-Aury Tablet] 0.8 mg PO DAILY 04/12/19 Sucroferric Oxyhydroxide [Velphoro] 1,000 mg PO MEALS 05/01/19 Sucroferric Oxyhydroxide [Velphoro] 500 mg PO .SNACKS 05/01/19 Allergies/Adverse Reactions: Penicillins Adverse Reaction (Verified 05/01/19 12:25) Review of Systems Constitutional: ABSENT: anorexia, chills, fatigue, fever(s), weakness Cardiovascular: PRESENT: dyspnea on exertion, edema. ABSENT: chest pain, orthropnea, palpitations Respiratory: PRESENT: dyspnea. ABSENT: cough, hemoptysis Gastrointestinal: ABSENT: abdominal pain, bloating, coffee ground emesis, diarrhea, dysphagia, heartburn, hematemesis, hematochezia, nausea, vomiting Genitourinary: ABSENT: dysuria, hematuria, nocturia Integumentary: ABSENT: lesions, pruritus Neurological: ABSENT: abnormal movements, abnormal speech, confusion, convulsions, focal weakness, frequent falls, lack of coordination Hematologic/Lymphatic: ABSENT: easy bruising, lymphadenopathy Physical Exam Vital Signs: Temp Pulse Resp BP Pulse Ox 98.1 F 96 24 H 202/74 H 93 05/01/19 12:15 05/01/19 12:15 05/01/19 12:15 05/01/19 12:15 05/01/19 12:15 Intake & Output 04/30/19 05/01/19 05/02/19 06:59 06:59 06:59 Weight 175.1 kg General appearance: PRESENT: mild distress, morbidly obese Eye exam: PRESENT: EOMI, PERRLA Ear exam: PRESENT: normal external ear exam Mouth exam: PRESENT: moist, neck supple Neck exam: ABSENT: lymphadenopathy, meningismus, tenderness, thyromegaly, tracheal deviation Respiratory exam: PRESENT: clear to auscultation german, crackles, decreased breath sounds Cardiovascular exam: PRESENT: +S1, +S2 GI/Abdominal exam: PRESENT: normal bowel sounds, soft. ABSENT: organomegaly, tenderness Extremities exam: PRESENT: +2 edema. ABSENT: calf tenderness Neurological exam: PRESENT: alert, awake, oriented to person, oriented to place, oriented to time Skin exam: PRESENT: mottled - Of venous stasis in both legs.. ABSENT: erythema, petechiae, rash Results Laboratory Results: 05/01/19 13:14 05/01/19 13:14 05/01/19 05/01/19 13:14 13:14 WBC 8.0 RBC 2.74 L Hgb 8.8 L Hct 26.4 L MCV 97 MCH 32.1 MCHC 33.3 RDW 14.4 H Plt Count 187 Seg Neutrophils % 80.1 H Sodium 138.1 Potassium 5.1 H Chloride 100 Carbon Dioxide 23 Anion Gap 15 BUN 84 H Creatinine 11.86 H Est GFR ( Amer) 6 L Glucose 213 H Calcium 9.2 Total Bilirubin 0.6 AST 19 Alkaline Phosphatase 103 Total Protein 6.8 Albumin 4.0 05/01/19 05/01/19 13:14 13:14 Troponin I 0.031 NT-Pro-B Natriuret Pep 6800 H Impressions: Chest X-Ray 05/01/19 12:41 IMPRESSION: Cardiomegaly with mild pulmonary edema. Assessment & Plan - Diagnosis (1) ESRD on hemodialysis Plan: Patient is in congestive heart failure secondary to dietary and fluid indiscretions. He is currently undergoing dialysis. Vital signs are stable. Dialysis is being supervised to ensure safe and smooth procedure. Plan to remove at least 5 L of fluid as tolerated. Discussed about the implications of dietary and fluid indiscretions to the patient at length. He has been so noncompliant with his diet and fluids for quite some time and he has never had such a situation so far. Dialysis orders were reviewed with the treating dialysis nurse. (2) CHF (congestive heart failure) Qualifiers: Heart failure type: unspecified Heart failure chronicity: acute Qualified Code(s): I50.9 - Heart failure, unspecified Is this a current diagnosis for this admission?: Yes Plan: See response to ultrafiltration. Advised patient that he should undergo dialysis tomorrow as an outpatient if he is discharged today and he should not miss that. He will benefit greatly from 2 [id number] dialysis as an extra treatment because he still will have plenty of fluids even though he would have gotten over his acute crisis at the moment. Discussed at length about dietary and fluid restrictions. Hopefully he will comply which I doubt given the fact he has been so noncompliant for quite some time. However this being the first time that he has come in with heart failure might be a lesson that he will learn from. (3) Anemia Qualifiers: Other causes of anemia: chronic disease, kidney Plan: Plan for erythropoietin. (4) PCK (polycystic kidney disease) Plan: Underlying cause of ESRD.
[2019-05-01] MEDS ORDERED: CALCITRIOL 0.25 MCG CAPSULE PO SCH (18:00)
[2019-05-01] MEDS ORDERED: ALLOPURINOL 100 MG TABLET PO SCH (18:00)
[2019-05-01] MEDS: FAMOTIDINE 20 MG TABLET PO SCH (21:31)
[2019-05-01] MEDS: NIFEDIPINE 30 MG TAB.ER.24 PO SCH (21:32)
[2019-05-01] MEDS: HYDRALAZINE HCL 50 MG TABLET PO SCH (21:32)
[2019-05-01] MEDS ORDERED: NITROGLYCERIN 2% OINTMENT 1 GM PACKET TP ONE (23:00)
[2019-05-01] MEDS ORDERED: MORPHINE SULFATE 10 MG/ML INJ IV PRN (23:09)
[2019-05-02] MEDS: NITROGLYCERIN 2% OINTMENT 1 GM PACKET TP SCH ×3 (04:06→14:51)
[2019-05-02] MEDS: HYDRALAZINE HCL 50 MG TABLET PO SCH ×2 (05:43→14:50)
[2019-05-02 06:27] LABS: ANION GAP 13 (5-19); CALCIUM 9.3 mg/dL (8.4-10.2); CARBON DIOXIDE 28 mmol/L (22-30); CHLORIDE 98 mmol/L (98-107); GLUCOSE 116 mg/dL (75-110); POTASSIUM 4.8 mmol/L (3.6-5.0)
[2019-05-02 06:53] LABS: BLOOD UREA NITROGEN 61 mg/dL (7-20)
[2019-05-02] MEDS: FAMOTIDINE 20 MG TABLET PO SCH (09:32)
[2019-05-02] MEDS: NIFEDIPINE 30 MG TAB.ER.24 PO SCH (09:43)
[2019-05-02] MEDS ORDERED: FUROSEMIDE INJ/PF 40 MG/4 ML SDV IV SCH (10:00)
[2019-05-02 16:29] VITALS: BP 165/79
--- NOTE | 2019-05-03 17:30 | PDOC DISCHARGE SUMMARY ---
Impression - Admit/DC Date/PCP Admission Date/Primary Care Provider: 05/01/19 14:42 JORDAN ROTHMAN MD Discharge Date: 05/02/19 - Discharge Diagnosis (1) Hyperkalemia Is this a current diagnosis for this admission?: Yes (2) CKD (chronic kidney disease) stage V requiring chronic dialysis Is this a current diagnosis for this admission?: Yes (3) Hypertension Is this a current diagnosis for this admission?: Yes (4) PCK (polycystic kidney disease) Is this a current diagnosis for this admission?: Yes - Assessment Summary: Patient will be admitted today for dialysis, then placed in observation status. Patient is relatively healthy for dialysis patient on very few medications. - Additional Information Resuscitation Status: Full Code Discharge Diet: Diabetic, Other (Comments) Discharge Activity: Activity As Tolerated, Balance Activity w/Rest, Weigh Daily Referrals: [facility] [Outside] JORDAN ROTHMAN MD [Primary Care Provider] - 05/08/19 2:45 pm (Please bring all discharge paperwork and current medications to the appointment. Thank you and have a great day!) Home Medications: Nifedipine [Procardia XL 30 mg Tablet] 90 mg PO Q12 09/18/16 Allopurinol [Zyloprim 100 mg Tablet] 100 mg PO DAILY 04/10/19 Hydralazine HCl [Apresoline 50 mg Tablet] 100 mg PO Q8 04/10/19 Folic Acid/Vitamin B Comp W-C [Daisy-Aury Tablet] 0.8 mg PO DAILY 04/12/19 Furosemide [Lasix 40 mg Tablet] 40 mg PO QAM 05/01/19 Sucroferric Oxyhydroxide [Velphoro] 1,000 mg PO MEALS 05/01/19 Sucroferric Oxyhydroxide [Velphoro] 500 mg PO .SNACKS 05/01/19 History of Present Illiness History of Present Illness: Admitting hospitalist's H&P: KIERAN LOVE is a 48 year old male who is been on hemodialysis now for 3 years. Patient was here at the hospital today get an ultrasound of his kidneys when he was walking back to the parking lot and got short of breath. He went to the emergency room to be evaluated.. She normally has dialysis on Wednesday and Wednesday but he was told he needed dialysis today. We were asked to put the patient in observation status following dialysis. Hospital Course Hospital Course: This is a 48-year-old male with ESRD on hemodialysis with poor compliance to medication and fluid restriction who was admitted because of increased shortness of breath and was found to be fluid overloaded hence was admitted. He received inpatient dialysis. He was evaluated by nephrology. His shortness of breath resolved after dialysis and he returned to his baseline. He was cleared for discharge by nephrology to arrange for another outpatient dialysis the day after discharge. Physical Exam Vital Signs: Temp Pulse Resp BP Pulse Ox 98.3 F 84 19 165/79 H 97 05/02/19 14:00 05/02/19 14:00 05/02/19 14:00 05/02/19 14:00 05/02/19 14:00 Intake & Output 05/01/19 05/02/19 05/03/19 06:59 06:59 06:59 Intake Total 500 720 Output Total 5100 Balance -4600 720 Weight 374 lb 1.991 oz 371 lb 7.662 oz General appearance: PRESENT: no acute distress, well-developed, well-nourished Head exam: PRESENT: atraumatic, normocephalic Eye exam: PRESENT: conjunctiva pink, EOMI, PERRLA. ABSENT: scleral icterus Ear exam: PRESENT: normal external ear exam Mouth exam: PRESENT: moist, tongue midline Neck exam: ABSENT: carotid bruit, JVD, lymphadenopathy, thyromegaly Respiratory exam: PRESENT: clear to auscultation german. ABSENT: rales, rhonchi, wheezes Cardiovascular exam: PRESENT: RRR. ABSENT: diastolic murmur, rubs, systolic murmur Pulses: PRESENT: normal dorsalis pedis pul GI/Abdominal exam: PRESENT: normal bowel sounds, soft. ABSENT: distended, guarding, mass, organolmegaly, rebound, tenderness Rectal exam: PRESENT: deferred Extremities exam: PRESENT: pedal edema Neurological exam: PRESENT: alert, awake, oriented to person, oriented to place, oriented to time, oriented to situation, CN II-XII grossly intact. ABSENT: motor sensory deficit Results Laboratory Results: WBC 8.0 10^3/uL (4.0-10.5) 05/01/19 13:14 RBC 2.74 10^6/uL (4.35-5.55) L 05/01/19 13:14 Hgb 8.8 g/dL (13.5-17.0) L 05/01/19 13:14 Hct 26.4 % (37.9-51.0) L 05/01/19 13:14 MCV 97 fl (80-97) 05/01/19 13:14 MCH 32.1 pg (27.0-33.4) 05/01/19 13:14 MCHC 33.3 g/dL (32.0-36.0) 05/01/19 13:14 RDW 14.4 % (11.5-14.0) H 05/01/19 13:14 Plt Count 187 10^3/uL (150-450) 05/01/19 13:14 Lymph % (Auto) 11.0 % (13-45) L 05/01/19 13:14 [place] % (Auto) 6.3 % (3-13) 05/01/19 13:14 Eos % (Auto) 1.8 % (0-6) 05/01/19 13:14 Baso % (Auto) 0.8 % (0-2) 05/01/19 13:14 Absolute Neuts (auto) 6.4 10^3/uL (1.7-8.2) 05/01/19 13:14 Absolute Lymphs (auto) 0.9 10^3/uL (0.5-4.7) 05/01/19 13:14 Absolute Monos (auto) 0.5 10^3/uL (0.1-1.4) 05/01/19 13:14 Absolute Eos (auto) 0.1 10^3/uL (0.0-0.6) 05/01/19 13:14 Absolute Basos (auto) 0.1 10^3/uL (0.0-0.2) 05/01/19 13:14 Seg Neutrophils % 80.1 % (42-78) H 05/01/19 13:14 Sodium 138.7 mmol/L (137-145) 05/02/19 05:50 Potassium 4.8 mmol/L (3.6-5.0) 05/02/19 05:50 Chloride 98 mmol/L (98-107) 05/02/19 05:50 Carbon Dioxide 28 mmol/L (22-30) 05/02/19 05:50 Anion Gap 13 (5-19) 05/02/19 05:50 BUN 61 mg/dL (7-20) H D 05/02/19 05:50 Creatinine 9.36 mg/dL (0.52-1.25) H 05/02/19 05:50 Est GFR ( Amer) 7 (>60) L 05/02/19 05:50 Est GFR (MDRD) Non-Af 6 (>60) L 05/02/19 05:50 Glucose 116 mg/dL (75-110) H 05/02/19 05:50 Hemoglobin A1c % 6.3 % (4.7-6.0) H 05/01/19 12:41 Calcium 9.3 mg/dL (8.4-10.2) 05/02/19 05:50 Total Bilirubin 0.6 mg/dL (0.2-1.3) 05/01/19 13:14 Direct Bilirubin 0.5 mg/dL (0.0-0.4) H 05/01/19 13:14 Neonat Total Bilirubin Not Reportable 05/01/19 13:14 Neonat Direct Bilirubin Not Reportable 05/01/19 13:14 Neonat Indirect Bili Not Reportable 05/01/19 13:14 AST 19 U/L (17-59) 05/01/19 13:14 ALT 21 U/L (<50) 05/01/19 13:14 Alkaline Phosphatase 103 U/L (38-126) 05/01/19 13:14 Troponin I 0.031 ng/mL 05/01/19 13:14 NT-Pro-B Natriuret Pep 6800 pg/mL (<125) H 05/01/19 13:14 Total Protein 6.8 g/dL (6.3-8.2) 05/01/19 13:14 Albumin 4.0 g/dL (3.5-5.0) 05/01/19 13:14 05/01/19 05/01/19 13:14 13:14 Troponin I 0.031 NT-Pro-B Natriuret Pep 6800 H Impressions: Chest X-Ray 05/01/19 12:41 IMPRESSION: Cardiomegaly with mild pulmonary edema. Stroke Is this a Stroke Patient?: No Acute Heart Failure - Is this a Heart Failure Patient?: No
== END 2019-05-02 19:17 | disposition home or self-care (01) ==
LOC: ER 12:08 → EH 14:42 → 4S 18:36
PROVIDERS: ADMIT Hospitalist; ATTEND Hospitalist
DX: E87.5 Hyperkalemia (principal); I13.2 Hypertensive heart and chronic kidney disease with heart failure and with stage 5 chronic kidney disease, or end stage renal disease; E11.22 Type 2 diabetes mellitus with diabetic chronic kidney disease; I50.9 Heart failure, unspecified; N18.6 End stage renal disease; Q61.3 Polycystic kidney, unspecified; D63.1 Anemia in chronic kidney disease; E66.01 Morbid (severe) obesity due to excess calories; I87.8 Other specified disorders of veins; Z99.2 Dependence on renal dialysis; Z91.14 Patient's other noncompliance with medication regimen
CPT/HCPCS: 99285; 36415 ×2; 85025; 80048; 80053; 84484; 83036; 83880; 71046; 76770; 93005; 93010; G0378 ×3; A9270 ×10; J1940; J2270; J3490 ×3; Q5105 ×3; G0257

== ENCOUNTER → 2019-05-01 | Outpatient (CLI) | payer MEDICARE, MEDICAID ==
--- NOTE | 2019-05-01 12:39 | RADIOLOGY REPORT (SQ) ---
EXAM DESCRIPTION: U/S RETROPERITON (RENAL/AORTA) COMPLETED DATE/TIME: 05/01/2019 12:20 pm REASON FOR STUDY: N28.1 CYST OF KIDNEY, ACQUIRED N28.1 CYST OF KIDNEY, ACQUIRED COMPARISON: Bilateral renal ultrasound 06/10/2016, 03/11/2016 TECHNIQUE: Dynamic and static grayscale images acquired of the kidneys and bladder and recorded on P ACS. Additional selected color Doppler and spectral images recorded. LIMITATIONS: Echogenic kidneys, body habitus FINDINGS: Right kidney is about 11 cm in length, cortex near completely replaced with innumerable si mple cysts. No gross hydronephrosis or hydroureter or stones. Largest right renal cyst about 3 cm i n the upper pole kidney. Left kidney is about 14 cm in length, cortex near completely replaced with innumerable simple cysts. Largest cyst is 5.7 cm in the mid pole kidney. No gross hydronephrosis or hydroureter or stones. Urinary bladder is incompletely distended. No stones. IMPRESSION: Adult polycystic kidney disease. Similar appearance compared to previous studies TECHNICAL DOCUMENTATION: JOB ID: [id number] [employer]- All Rights Reserved Reading location - IP/workstation name: [email or web address]
== END ==
LOC: RAD 10:46
PROVIDERS: ATTEND Internal Medicine Nephrology
DX: Q61.2 Polycystic kidney, adult type (principal)
CPT/HCPCS: 76770

== ENCOUNTER 2020-04-20 16:45 | Emergency (ER) | payer MEDICARE, MEDICAID ==
[2020-04-20] MEDS ORDERED: ACETAMINOPHEN 325 MG TABLET PO ONE (17:48)
--- NOTE | 2020-04-20 17:53 | ER Document Report ---
ED Fever - General Chief Complaint: Flu Symptoms Stated Complaint: FEVER Time Seen by Provider: 04/20/20 16:58 Primary Care Provider: JORDAN ROTHMAN MD [Primary Care Provider] - Follow up as needed Notes: HPI: 49-year-old male who presents today stating the onset earlier in the week of a "scratchy throat" with a low-grade fever. He had 2 bouts of nonbloody nonbilious vomiting and one bout of diarrhea. Patient is a dialysis patient completed dialysis today. He denies any chest pain, abdominal pain, lower extremity swelling. Mildl cough. No Tylenol today with a temperature here as recorded. ROS: See HPI All other review of systems reviewed and otherwise negative Reviewed vital signs and nursing note as charted by RN. PHYSICAL EXAM: CONSTITUTIONAL: Alert and oriented and responds appropriately to questions. Well-appearing; well-nourished HEAD: Normocephalic; atraumatic EYES: Sclerae non-icteric ENT: Normal nose; no rhinorrhea; moist mucous membranes; pharynx without lesions noted NECK: Supple without meningismus; non-tender; no cervical lymphadenopathy, no masses CARD: Regular rate and rhythm; no murmurs; symmetric distal pulses RESP: Normal chest excursion without splinting or tachypnea; breath sounds clear and equal bilaterally ABD/GI: Normal bowel sounds; elevated BMI; soft, non-tender to deep palpation currently of all 4 quadrants of the abdomen BACK: The back appears normal and is non-tender to palpation EXT: Normal ROM in all joints; non-tender to palpation; no edema SKIN: No acute lesions noted NEURO: CN 2-12 intact; 5/5 bilateral upper and lower extremity strength with sensation intact to light touch PSYCH: The patient's mood and manner are appropriate. Grooming and personal hygiene are appropriate. TRAVEL OUTSIDE OF THE [place] IN LAST 30 DAYS: No - Related Data Allergies/Adverse Reactions: Penicillins Adverse Reaction (Verified 04/20/20 16:55) shrimp Adverse Reaction (Verified 04/20/20 16:55) Past Medical History - Social History Smoking Status: Never Smoker Family History: Reviewed & Not Pertinent - Past Medical History Cardiac Medical History: Reports: Hx Congestive Heart Failure, Hx Hypertension Denies: Hx Atrial Fibrillation, Hx Coronary Artery Disease, Hx Heart Attack Pulmonary Medical History: Reports: Hx Asthma - toddler, Hx Pneumonia - 30 years ago Denies: Hx Bronchitis, Hx COPD Neurological Medical History: Denies: Hx Cerebrovascular Accident, Hx Seizures Endocrine Medical History: Reports: Hx Diabetes Mellitus Type 2 - "diet- controlled" Renal/ Medical History: Reports: Hx End Stage Renal Disease GI Medical History: Denies: Hx Hepatitis, Hx Hiatal Hernia, Hx Ulcer Musculoskeletal Medical History: Denies Hx Arthritis Infectious Medical History: Denies: Hx Hepatitis Past Surgical History: Reports: Hx Orthopedic Surgery - fx L forearm, Hx Tonsillectomy - adnoids. Denies: Hx Open Heart Surgery, Hx Pacemaker - Immunizations Immunizations up to date: Yes Hx Diphtheria, Pertussis, Tetanus Vaccination: No Hx Pneumococcal Vaccination: 04/07/12 Physical Exam - Vital signs Vitals: Temp Pulse Resp BP Pulse Ox 99.7 F 88 20 172/80 H 93 04/20/20 17:38 04/20/20 17:38 04/20/20 17:38 04/20/20 17:38 04/20/20 17:38 Course - Re-evaluation Re-evalutation: 04/20/20 17:52 Given the history and physical examination in this male in no obvious acute distress, with room air oxygenation as recorded, cough, no chest pain or abdominal pain, no recent antibiotics with nonbloody diarrhea, completing dialysis today, I will obtain a rapid strep, coronavirus test, x-ray of the chest, and reassess. Blood cultures will also be sent given the patient is on dialysis with basic laboratory values added. 04/20/20 19:53 Labs and imaging as recorded. Patient is sitting up on the end of the bed in no obvious acute distress. Patient is not hypoxic. Patient does appear to be slightly lymphopenic with a platelet level of 100,000 which is low for him compared to previous labs. Patient did have dialysis today. Patient is not anemic and his hemoglobin is actually increased from previous. This could be a viral etiology such as coronavirus causing decreased lymphocytes. X-ray as recorded. I have discussed with the patient admission. He states he feels quite well sitting up on his stretcher filling out paperwork. Patient is allergic to penicillins. Coronavirus is pending. Given the concern for possible coronavirus, I will provide a dose of Decadron. Given that the patient would like to go home, allergic to penicillins, understanding the risks of going home, promising to return with any worrisome symptoms, I will start the patient on a course of Levaquin. 04/20/20 20:27 I was able to speak the industrial gas fitter helper Dr. Naseem Cross. He was actually able to find a rapid Covid test that was ordered today from dialysis which was positive. This gives me even more assurance that this is a viral etiology. He is comfortable with me providing Levaquin. He is going to have the patient call tomorrow morning because the patient will need on Wednesday to go to a new dialysis location. - Vital Signs Vital signs: Temp Pulse Resp BP Pulse Ox 99.7 F 88 20 172/80 H 93 04/20/20 17:38 04/20/20 17:38 04/20/20 17:38 04/20/20 17:38 04/20/20 17:38 - Laboratory Result Diagrams: 04/20/20 19:00 04/20/20 19:00 Laboratory results interpreted by me: 04/20/20 04/20/20 19:00 19:00 WBC 3.9 L RBC 3.45 L Hgb 11.0 L Hct 32.8 L Plt Count 104 L Lymph % (Auto) 11.0 L Absolute Lymphs (auto) 0.4 L Seg Neutrophils % 84.6 H Sodium 134.8 L Chloride 96 L BUN 23 H Creatinine 6.89 H Est GFR ( Amer) 10 L Est GFR (MDRD) Non-Af 9 L Calcium 7.6 L Discharge - Discharge Clinical Impression: COVID-19 determined by clinical diagnostic criteria Condition: Good Disposition: HOME, SELF-CARE Additional Instructions: Come back immediately for any worsening shortness of breath, cough, persistent vomiting, or any other acute problems. Please make sure that you call your dialysis center tomorrow as we have discussed as they will have a new location for you to receive your dialysis on Wednesday as this is a holiday week. Prescriptions: Levofloxacin [Levaquin 750 mg Tablet] 750 mg PO DAILY #5 tablet Referrals: JORDAN ROTHMAN MD [Primary Care Provider] - Follow up as needed
--- NOTE | 2020-04-20 18:28 | RADIOLOGY REPORT (SQ) ---
EXAM DESCRIPTION: CHEST SINGLE VIEW IMAGES COMPLETED DATE/TIME: 04/20/2020 6:11 pm REASON FOR STUDY: fever COMPARISON: 05/01/2019 TECHNIQUE: Single frontal radiographic view of the chest acquired. NUMBER OF VIEWS: One view. LIMITATIONS: None. FINDINGS: LUNGS AND PLEURA: No pneumothorax. Bibasilar patchy airspace and interstitial opacities. No significant pleural effusion. MEDIASTINUM AND HILAR STRUCTURES: Stable. HEART AND VASCULAR STRUCTURES: Similar cardiomegaly. BONES: No acute findings. HARDWARE: None in the chest. OTHER: No other significant finding. IMPRESSION: Bibasilar patchy airspace and interstitial opacities. TECHNICAL DOCUMENTATION: JOB ID: [id number] [place]-[id number] 2010 [employer]- All Rights Reserved Reading location - IP/workstation name: [email or web address]
[2020-04-20 19:09] LABS: A TYPE INFLUENZA AG NEGATIVE (NEGATIVE); B INFLUENZA AG NEGATIVE (NEGATIVE)
[2020-04-20] MEDS ORDERED: CEFTRIAXONE 1 GM/D5W RTU 1 GM/50 ML RTUPB IV ONE (19:18)
[2020-04-20] MEDS ORDERED: AZITHROMYCIN INJ 500 MG VIAL IV ONE (19:18)
[2020-04-20 19:21] LABS: ABSOLUTE LYMPHOCYTES (AUTO) 0.4 10^3/uL (0.5-4.7); ABSOLUTE MONOCYTES (AUTO) 0.1 10^3/uL (0.1-1.4); ABSOLUTE NEUT (AUTO) 3.3 10^3/uL (1.7-8.2); BASOPHILS % (AUTO) 0.6 % (0-2); EOSINOPHILS % (AUTO) 0.1 % (0-6); HEMATOCRIT 32.8 % (37.9-51.0); MEAN CORPUSCULAR HEMOGLOBIN 31.7 pg (27.0-33.4); MEAN CORPUSCULAR HGB CONC 33.4 g/dL (32.0-36.0); MEAN CORPUSCULAR VOLUME 95 fl (80-97); MONOCYTES % (AUTO) 3.7 % (3-13); PLATELET COUNT 104 10^3/uL (150-450); RED BLOOD COUNT 3.45 10^6/uL (4.35-5.55); RED CELL DISTRIBUTION WIDTH 13.5 % (11.5-14.0); SEGMENTED NEUTROPHILS % (AUTO) 84.6 % (42-78); TOTAL CELLS COUNTED % (AUTO) 100 %; WHITE BLOOD COUNT 3.9 10^3/uL (4.0-10.5)
[2020-04-20 19:39] LABS: ALBUMIN 3.8 g/dL (3.5-5.0); ALKALINE PHOSPHATASE 125 U/L (38-126); ANION GAP 13 (5-19); ASPARTATE AMINO TRANSFERASE 36 U/L (17-59); BILIRUBIN,DIRECT 0.4 mg/dL (0.0-0.4); BILIRUBIN,TOTAL 0.7 mg/dL (0.2-1.3); BLOOD UREA NITROGEN 23 mg/dL (7-20); CALCIUM 7.6 mg/dL (8.4-10.2); CARBON DIOXIDE 26 mmol/L (22-30); CHLORIDE 96 mmol/L (98-107); GLUCOSE 108 mg/dL (75-110); POTASSIUM 3.8 mmol/L (3.6-5.0); TOTAL PROTEIN 6.6 g/dL (6.3-8.2)
[2020-04-20] MEDS ORDERED: DEXAMETHASONE 4 MG TABLET PO ONE (20:10)
[2020-04-20] MEDS ORDERED: LEVOFLOXACIN 750 MG TABLET PO SCH (21:00)
[2020-04-20 22:23] VITALS: BP 221/96
== END 2020-04-20 23:10 | disposition home or self-care (01) ==
LOC: ER 16:45
DX: U07.1 COVID-19 (principal); R50.9 Fever, unspecified; R11.10 Vomiting, unspecified; R19.7 Diarrhea, unspecified; E11.22 Type 2 diabetes mellitus with diabetic chronic kidney disease; I13.2 Hypertensive heart and chronic kidney disease with heart failure and with stage 5 chronic kidney disease, or end stage renal disease; I50.9 Heart failure, unspecified; N18.6 End stage renal disease; Z99.2 Dependence on renal dialysis
CPT/HCPCS: 99284; 36415; 87040; 87070; 87880; 83690; 85025; 80053; 87804; 71045; U0003; A9270 ×3; C9803; 87635; J8540